=== PATIENT | female | born 1945 | race Caucasian/White ===

== ENCOUNTER 2016-10-22 10:09 | Outpatient (CLI) | payer MEDICARE, OTHER | END 2016-10-22 10:10 | disposition home or self-care (01) | DX: M47.817 Spondylosis without myelopathy or radiculopathy, lumbosacral region (principal) ==

== ENCOUNTER 2016-12-09 08:13 | Outpatient (CLI) | payer MEDICARE, OTHER | END 2016-12-09 08:14 | disposition home or self-care (01) | DX: Z12.31 Encounter for screening mammogram for malignant neoplasm of breast (principal) ==

== ENCOUNTER 2016-12-10 08:14 | Outpatient (CLI) | payer MEDICARE, OTHER | END 2016-12-10 08:15 | disposition home or self-care (01) | DX: M85.89 Other specified disorders of bone density and structure, multiple sites (principal) ==

== ENCOUNTER 2017-08-06 08:01 | Outpatient (CLI) | payer MEDICARE, OTHER ==
[2017-08-06 08:26] LABS: BASOPHILS # (AUTO) 0.1 10^3/uL (0.0-0.1); BASOPHILS % (AUTO) 0.8 %; EOSINOPHILS # (AUTO) 0.2 10^3/uL (0.0-0.7); HGB - HEMOGLOBIN 13.7 g/dL (12.0-16.0); LYMPHOCYTES # (AUTO) 3.4 10^3/uL (1.5-3.5); LYMPHOCYTES % (AUTO) 42.3 %; MEAN CORPUSCULAR HEMOGLOBIN 30.1 pg (27.0-31.0); MEAN CORPUSCULAR HGB CONC 33.7 g/dL (32.0-36.0); MEAN CORPUSCULAR VOLUME 89.5 fL (81.0-99.0); MEAN PLATELET VOLUME 8.2 fL (7.9-10.8); MONOCYTES # (AUTO) 0.7 10^3/uL (0.0-1.0); MONOCYTES % (AUTO) 8.6 %; NEUTROPHILS # (AUTO) 3.8 10^3/uL (1.5-6.6); NEUTROPHILS % (AUTO) 46.3 %; PLT - PLATELET COUNT 218 10^3/uL (130-450); RED BLOOD COUNT 4.54 10^6/uL (4.20-5.40); RED CELL DISTRIBUTION WIDTH 14.6 % (12.0-15.0); WHITE BLOOD COUNT 8.1 x10^3/uL (4.8-10.8)
[2017-08-06 08:50] LABS: ALBUMIN 4.3 g/dL (3.2-5.5); ALBUMIN/GLOBULIN RATIO 1.5 (1.0-2.2); ALKALINE PHOSPHATASE 82 IU/L (42-121); ALT ALANINE AMINOTRANSFERASE 24 IU/L (10-60); AST ASPARTATE AMINOTRANSFERASE 29 IU/L (10-42); BILIRUBIN,TOTAL 0.7 mg/dL (0.2-1.0); BUN - BLOOD UREA NITROGEN 16 mg/dL (6-20); CALCIUM 9.6 mg/dL (8.5-10.3); CARBON DIOXIDE - CO2 24 mmol/L (21-32); CHLORIDE 101 mmol/L (101-111); CHOL/HDL RATIO 2.9 (<4.4); CHOLESTEROL 184 mg/dL; CREATININE 0.5 mg/dL (0.4-1.0); GFR - MDRD 122 (>89); GLUCOSE 102 mg/dL (70-100); HDL CHOLESTEROL 63 mg/dL; LDL CHOLESTEROL,CALCULATED 81 mg/dL; LDL/HDL RATIO 1.3 (<4.4); SODIUM 137 mmol/L (135-145); TOTAL PROTEIN 7.1 g/dL (6.7-8.2); VLDL CHOLESTEROL 40 mg/dL
[2017-08-07 13:33] LABS: HEPATITIS C ANTIBODY NON-REACTIVE (NON-REACTIVE)
== END 2017-08-06 08:02 | disposition home or self-care (01) ==
LOC: LAB 08:01
PROVIDERS: ATTEND Physician Assistant Medical
DX: M81.0 Age-related osteoporosis without current pathological fracture (principal); Z79.899 Other long term (current) drug therapy; Z11.59 Encounter for screening for other viral diseases; E78.5 Hyperlipidemia, unspecified
CPT/HCPCS: 36415; 80053; 80061; 82306; 84443; 85025; 86803

== ENCOUNTER 2017-12-29 08:38 | Outpatient (CLI) | payer MEDICARE, OTHER ==
--- NOTE | 2017-12-30 13:58 | Mammography Report ---
DIGITAL SCREENING MAMMOGRAM: 12/29/2017 CLINICAL INDICATION: A 72-year-old for screening. COMPARISON: 12/2016, 12/2015, 07/2013, 03/2012, 03/2011, 11/2009. TECHNIQUE: Routine CC and MLO projections were obtained of the breasts. FINDINGS: The breasts again demonstrate scattered fibroglandular densities bilaterally. Coarse and punctate, typically benign calcifications are present. No suspicious masses, clustered microcalcifications, or regions of architectural distortion are identified. IMPRESSION: BENIGN FINDINGS. RECOMMENDATION: Routine annual screening unless otherwise clinically indicated. BI-RADS CATEGORY 2 - BENIGN FINDINGS. STANDARD QUALIFYING STATEMENTS: 1. This examination was reviewed with the aid of Computer-Aided Detection (CAD). 2. A negative or benign imaging report should not delay biopsy if clinically suspicious findings are present. Consider surgical consultation if warranted. More than 5% of cancers are not identified by imaging. 3. Dense breasts may obscure an underlying neoplasm. TD: 12/30/2017 13:49
== END 2017-12-29 08:39 | disposition home or self-care (01) ==
LOC: DI 08:38
PROVIDERS: ATTEND Physician Assistant Medical
DX: Z12.31 Encounter for screening mammogram for malignant neoplasm of breast (principal)
CPT/HCPCS: 77067

== ENCOUNTER 2018-08-04 08:04 | Outpatient (CLI) | payer MEDICARE, OTHER ==
[2018-08-04 08:33] LABS: BASOPHILS # (AUTO) 0.1 10^3/uL (0.0-0.1); BASOPHILS % (AUTO) 0.8 %; EOSINOPHILS # (AUTO) 0.2 10^3/uL (0.0-0.7); EOSINOPHILS % (AUTO) 2.9 %; HGB - HEMOGLOBIN 13.8 g/dL (12.0-16.0); LYMPHOCYTES # (AUTO) 2.6 10^3/uL (1.5-3.5); MEAN CORPUSCULAR HEMOGLOBIN 30.4 pg (27.0-31.0); MEAN CORPUSCULAR HGB CONC 33.9 g/dL (32.0-36.0); MEAN CORPUSCULAR VOLUME 89.7 fL (81.0-99.0); MEAN PLATELET VOLUME 8.3 fL (7.9-10.8); MONOCYTES # (AUTO) 0.6 10^3/uL (0.0-1.0); NEUTROPHILS # (AUTO) 3.2 10^3/uL (1.5-6.6); NEUTROPHILS % (AUTO) 48.3 %; PLT - PLATELET COUNT 245 10^3/uL (130-450); RED BLOOD COUNT 4.55 10^6/uL (4.20-5.40); RED CELL DISTRIBUTION WIDTH 14.5 % (12.0-15.0); WHITE BLOOD COUNT 6.6 x10^3/uL (4.8-10.8)
[2018-08-04 08:51] LABS: ALBUMIN 4.3 g/dL (3.2-5.5); ALBUMIN/GLOBULIN RATIO 1.5 (1.0-2.2); ALKALINE PHOSPHATASE 90 IU/L (42-121); ALT ALANINE AMINOTRANSFERASE 28 IU/L (10-60); AST ASPARTATE AMINOTRANSFERASE 32 IU/L (10-42); BILIRUBIN,TOTAL 0.7 mg/dL (0.2-1.0); BUN - BLOOD UREA NITROGEN 10 mg/dL (6-20); CALCIUM 9.3 mg/dL (8.5-10.3); CARBON DIOXIDE - CO2 26 mmol/L (21-32); CHLORIDE 105 mmol/L (101-111); CHOL/HDL RATIO 2.5 (<4.4); CHOLESTEROL 174 mg/dL; CREATININE 0.5 mg/dL (0.4-1.0); GFR - MDRD 122 (>89); GLUCOSE 108 mg/dL (70-100); HDL CHOLESTEROL 71 mg/dL; LDL CHOLESTEROL,CALCULATED 70 mg/dL; SODIUM 139 mmol/L (135-145); TOTAL PROTEIN 7.1 g/dL (6.7-8.2); VLDL CHOLESTEROL 33 mg/dL
== END 2018-08-04 08:05 | disposition home or self-care (01) ==
LOC: LAB 08:04
PROVIDERS: ATTEND Physician Assistant Medical
DX: Z79.899 Other long term (current) drug therapy (principal); M81.0 Age-related osteoporosis without current pathological fracture; E78.2 Mixed hyperlipidemia; E66.3 Overweight
CPT/HCPCS: 36415; 80053; 80061; 82306; 83721; 84443; 85025

== ENCOUNTER 2019-09-28 07:16 | Outpatient (CLI) | payer MEDICARE, OTHER ==
[2019-09-28 08:36] LABS: BASOPHILS % (AUTO) 0.5 %; EOSINOPHILS # (AUTO) 0.1 10^3/uL (0.0-0.7); EOSINOPHILS % (AUTO) 1.8 %; HGB - HEMOGLOBIN 14.6 g/dL (12.0-16.0); LYMPHOCYTES # (AUTO) 2.8 10^3/uL (1.5-3.5); LYMPHOCYTES % (AUTO) 36.2 %; MEAN CORPUSCULAR HEMOGLOBIN 30.7 pg (27.0-31.0); MEAN CORPUSCULAR HGB CONC 33.6 g/dL (32.0-36.0); MEAN CORPUSCULAR VOLUME 91.4 fL (81.0-99.0); MEAN PLATELET VOLUME 10.1 fL (7.9-10.8); MONOCYTES # (AUTO) 0.7 10^3/uL (0.0-1.0); MONOCYTES % (AUTO) 9.1 %; NEUTROPHILS # (AUTO) 4.1 10^3/uL (1.5-6.6); NEUTROPHILS % (AUTO) 51.9 %; PLT - PLATELET COUNT 310 10^3/uL (130-450); RED BLOOD COUNT 4.75 10^6/uL (4.20-5.40); RED CELL DISTRIBUTION WIDTH 13.5 % (12.0-15.0); WHITE BLOOD COUNT 7.8 x10^3/uL (4.8-10.8)
[2019-09-28 08:50] LABS: ALBUMIN 4.4 g/dL (3.2-5.5); ALBUMIN/GLOBULIN RATIO 1.4 (1.0-2.2); ALKALINE PHOSPHATASE 78 IU/L (42-121); ALT ALANINE AMINOTRANSFERASE 38 IU/L (10-60); AST ASPARTATE AMINOTRANSFERASE 40 IU/L (10-42); BILIRUBIN,TOTAL 0.6 mg/dL (0.2-1.0); BUN - BLOOD UREA NITROGEN 10 mg/dL (6-20); CALCIUM 9.4 mg/dL (8.5-10.3); CARBON DIOXIDE - CO2 25 mmol/L (21-32); CHLORIDE 104 mmol/L (101-111); CHOL/HDL RATIO 2.8 (<4.4); CHOLESTEROL 145 mg/dL; CREATININE 0.6 mg/dL (0.4-1.0); GFR - MDRD 99 (>89); GLUCOSE 99 mg/dL (70-100); HDL CHOLESTEROL 52 mg/dL; LDL CHOLESTEROL,CALCULATED 70 mg/dL; LDL/HDL RATIO 1.3 (<4.4); SODIUM 137 mmol/L (135-145); TOTAL PROTEIN 7.6 g/dL (6.7-8.2); VLDL CHOLESTEROL 23 mg/dL
[2019-09-28 10:42] LABS: FREE T4 (FREE THYROXINE) 1.13 ng/dL (0.58-1.64)
== END 2019-09-28 07:17 | disposition home or self-care (01) ==
LOC: LAB 07:16
PROVIDERS: ATTEND Nurse Practitioner
DX: R73.9 Hyperglycemia, unspecified (principal); Z79.899 Other long term (current) drug therapy; E78.2 Mixed hyperlipidemia; M81.0 Age-related osteoporosis without current pathological fracture
CPT/HCPCS: 36415; 80053; 80061; 82306; 83721; 84439; 84443; 85025

== ENCOUNTER 2019-11-13 08:45 | Outpatient (CLI) | payer MEDICARE, OTHER ==
--- NOTE | 2019-11-13 11:14 | Mammography Report ---
Reason: ABNORMAL MAMMOGRAM Procedure Date: 11/13/2019 Accession Number: [id number] / [id number] Procedure: ZAINAB - Diag Special Views Dig LT CPT Code: Final Report FULL RESULT: EXAM: Diag Special Views Dig LT DATE: 11/13/2019 9:23 AM CLINICAL HISTORY: Diagnostic examination. The patient is recalled from screening for hyperdense nodule. TECHNIQUE: (B) - Bilateral CC and MLO views were obtained. Focused left breast ultrasound is performed. COMPARISON: 10/09/2019 through 03/12/2011. PARENCHYMAL PATTERN: (D) - The breast(s) demonstrate(s) heterogeneously dense fibroglandular parenchyma. FINDINGS: Evidence nodule persists on spot views and is tomographically partially obscured. Focused left breast ultrasound demonstrates a hypoechoic lobulated partially ill-defined 2.0 x 0.9 x 1.5 cm vascular mass which corresponds to the mammographic finding at the 2:00 position 4 cm from the nipple, suspicious. There are no suspicious calcifications, or areas of distortion. IMPRESSION: Suspicious findings. BI-RADS category 4. RECOMMENDATION: (BIOPSY) - left breast biopsy under ultrasound guidance. BI-RADS CATEGORY: (4) - Suspicious. STANDARD QUALIFYING STATEMENTS: 1. This examination was not reviewed with the aid of Computer-Aided Detection (CAD). 2. A negative or benign imaging report should not preclude biopsy if clinically suspicious findings are present. 3. Dense breasts may obscure an underlying neoplasm. 4. This examination was reviewed with the aid of 3D breast imaging (tomosynthesis).
== END 2019-11-13 08:46 | disposition home or self-care (01) ==
LOC: DI 08:45
PROVIDERS: ATTEND Nurse Practitioner Obstetrics & Gynecology
DX: N63.22 Unspecified lump in the left breast, upper inner quadrant (principal)
CPT/HCPCS: 76642

== ENCOUNTER 2019-12-06 13:02 | Outpatient (CLI) | payer MEDICARE, OTHER ==
[~2019-12-06 13:02] MED LIST: BUFFERED LIDOCAINE 10 ML SYRINGE ONE
[2019-12-06] MEDS ORDERED: BUFFERED LIDOCAINE 10 ML SYRINGE IU ONE (14:51)
--- NOTE | 2019-12-12 14:10 | Ultrasound Report ---
Reason: ABNORMAL MAMMO - LT BREAST NODULE Procedure Date: 12/06/2019 Accession Number: [id number] / [id number] Procedure: US - Biopsy Breast Core CPT Code: Final Report FULL RESULT: PROCEDURE: Ultrasound-guided needle biopsy left breast mass. CLINICAL DATA: Targeted mass measuring 2 cm with irregular margins in the 2 o'clock axis of the left breast. Informed consent was obtained. Using standard aseptic technique, 1% buffered lidocaine was injected into the left breast for local anesthesia. A small elmer was made in the skin with a #11 blade. A 12-gauge Wordlock vacuum-assisted device was used to obtain 3 specimens. A specialized biopsy marker clip was placed into the biopsy cavity under ultrasound guidance. The patient was taken to separate mammography machine and a two-view digital mammography was performed to verify the clip placement and any complications. The mammography showed concordant clip positioning. The wound was dressed and ice applied. The patient was observed for approximately 15 minutes, then was discharged from diagnostic imaging Department in good condition following instructions on wound care and obtaining biopsy results. The patient is scheduled to receive the biopsy results from the referring physician. The tissue was sent for histologic analysis. IMPRESSION: Ultrasound-guided biopsy of the left breast. Biopsy performed and pathology reviewed by Dr. Farris. Final pathology results are malignant invasive adenocarcinoma, ductal type with mucinous component, histologically low-grade. These results are concordant with imaging findings. Recommendation: Surgical follow-up with treatment planning. The patient has been scheduled to obtain results on 12/12/[address] Martínez
== END 2019-12-06 13:03 | disposition home or self-care (01) ==
LOC: DI 13:02
PROVIDERS: ATTEND Nurse Practitioner Obstetrics & Gynecology
DX: C50.412 Malignant neoplasm of upper-outer quadrant of left female breast (principal); Z17.0 Estrogen receptor positive status [ER+]
CPT/HCPCS: 19083

== ENCOUNTER 2020-01-11 11:39 | Outpatient (CLI) | payer MEDICARE, OTHER | END 2020-01-11 11:40 | disposition home or self-care (01) | LOC: LAB 11:39 | PROVIDERS: ATTEND Surgery | DX: Z01.818 Encounter for other preprocedural examination (principal); C50.912 Malignant neoplasm of unspecified site of left female breast; Z20.828 Contact with and (suspected) exposure to other viral communicable diseases | CPT/HCPCS: 81599 ==

== ENCOUNTER 2020-01-15 09:01 | Day surgery (SDC) | payer MEDICARE, OTHER ==
[2020-01-15] MEDS ORDERED: CEFAZOLIN SODIUM IN 0.9 % NACL 2 GM/100 ML BAG IV ONE (09:02)
[2020-01-15] MEDS ORDERED: ONDANSETRON 4 MG/2 ML VIAL IVP ONE (09:02)
[2020-01-15] MEDS ORDERED: DEXAMETHASONE 4 MG/ML VIAL IVP ONE (09:02)
[2020-01-15] MEDS ORDERED: fentaNYL 100 MCG/2 ML VIAL IVP ONE (09:02)
[2020-01-15] MEDS ORDERED: PROPOFOL 200 MG/20 ML VIAL IVP ONE (09:02)
[2020-01-15] MEDS ORDERED: ACETAMINOPHEN 1,000 MG/100 ML VIAL IV ONE (09:02)
[2020-01-15] MEDS ORDERED: MIDAZOLAM 2 MG/2 ML VIAL IVP ONE (09:02)
[2020-01-15] MEDS ORDERED: BUFFERED LIDOCAINE 10 ML SYRINGE ONE ×2 (09:12→10:30)
[2020-01-15] MEDS ORDERED: LACTATED RINGERS 1,000 ML IV ONE (09:13)
[2020-01-15] MEDS ORDERED: BUPIVACAINE 0.5% PF 30 ML VIAL ONE (10:37)
[2020-01-15] MEDS ORDERED: LIDOCAINE 1%-EPI 1:100000 20 ML MDV ONE (10:37)
[2020-01-15] MEDS ORDERED: METHYLENE BLUE 0.5% 50 MG/10 ML AMPULE IVP ONE ×2 (12:08)
[2020-01-15] MEDS ORDERED: METHYLENE BLUE 0.5% 50 MG/10 ML AMPULE ONE (12:11)
[2020-01-15] MEDS ORDERED: BUPIVACAINE 0.5%-EPI 1:200000 PF 30 ML VIAL SUBQ ONE ×3 (12:11→12:48)
[2020-01-15] MEDS ORDERED: LIDOCAINE 1%-EPI 1:100000 30 ML MDV SUBQ ONE ×3 (12:11→12:48)
--- NOTE | 2020-01-15 12:23 | ANESTHESIA ---
Pre-Anesthesia VS, & Labs - Diagnosis invasive L breast cancer - Procedure L breast lumpectomy Vital Signs: Temp Pulse Resp BP Pulse Ox 36.2 C L 84 12 152/70 H 99 01/15/20 09:14 01/15/20 09:14 01/15/20 09:14 01/15/20 09:14 01/15/20 09:14 Height 5 ft 2 in Weight (kg) 69.2 kg - NPO >8 hours - Is Patient ?: No - Lab Results Lab results reviewed: Yes Home Medications and Allergies Home Medications: Ambulatory Orders Atorvastatin Calcium 20 mg PO QPM 01/09/20 Biotin 5,000 mcg PO DAILY 01/09/20 Calcium Carb/Mag Ox/Zinc Sulf [Cvs Sbjbnby-Pnzoqqucb-Mol Cplt] 1 each PO DAILY 01/09/20 Cholecalciferol [Vitamin D3] 2,000 unit PO DAILY 01/09/20 Cyanocobalamin (Vitamin B-12) [Vitamin B-12] 2,500 mcg SL DAILY 01/09/20 Multivitamin 1 each PO DAILY 01/09/20 Atorvastatin Calcium 20 mg PO QPM 01/09/20 Biotin 5,000 mcg PO DAILY 01/09/20 Calcium Carb/Mag Ox/Zinc Sulf [Cvs Jisbzhl-Hwqjxyslb-Lqd Cplt] 1 each PO DAILY 01/09/20 Cholecalciferol [Vitamin D3] 2,000 unit PO DAILY 01/09/20 Cyanocobalamin (Vitamin B-12) [Vitamin B-12] 2,500 mcg SL DAILY 01/09/20 Multivitamin 1 each PO DAILY 01/09/20 Allergies/Adverse Reactions: Allergies Allergy/AdvReac Type Severity Reaction Status Date / Time amoxicillin [From Augmentin] AdvReac Unknown Verified 01/15/20 09:25 clavulanic acid AdvReac Unknown Verified 01/15/20 09:25 [From Augmentin] Anes History & Medical History - Anesthetic History Anesthesia Complications: reports: No previous complications, Difficult airway (per pt, from case 30 years ago), Other-see comment Family history of Anesthesia Complications: Denies Family history of Malignant Hyperthermia: Denies - Medical History Cardiovascular: reports: High cholesterol Pulmonary: reports: None Gastrointestinal: reports: None Urinary: reports: None Musculoskeletal: reports: None Endocrine/Autoimmune: reports: None Skin: reports: None Smoking Status: Never smoker - Surgical History Eyes Ears Nose Throat (EENT): Tonsil/Adenoidectomy Gynecologic: Dilation and currettage Orthopedic: Other Exam General: Alert, Oriented x3, Cooperative Dental: WNL Mouth Openin Fingerbreadth Neck Mobility: Normal Mallampati classification: II Thyromental Distance: 4-6 cm Respiratory: Lungs clear, Normal breath sounds, No respiratory distress Cardiovascular: Regular rate Neurological: Normal speech Mental/Cognitive Status: Alert/Oriented X3, Normal for patient Cognitive Status: Within normal limits Plan Anesthesia Type: General Consent for Procedure(s) Verified and Reviewed: Yes Code Status: Attempt Resuscitation ASA classification: 3-Severe systemic disease Is this case an emergency?: No
[2020-01-15] MEDS ORDERED: ONDANSETRON 4 MG/2 ML VIAL IVP PRN (13:25)
[2020-01-15] MEDS ORDERED: ACETAMINOPHEN 325 MG TABLET PO PRN (13:25)
[2020-01-15] MEDS ORDERED: IBUPROFEN 600 MG TABLET PO PRN (13:25)
[2020-01-15] MEDS ORDERED: oxyCODONE 5 MG TABLET PO PRN (13:25)
--- NOTE | 2020-01-15 13:35 | OPERATIVE REPORT ---
Operative Report - General Procedure Date: 01/15/20 Planned Procedure: Left breast lumpectomy and sentinel node biopsy after needle localization and mapping. Pre-Op Diagnosis: Biopsy-proven left breast cancer Procedure Performed: Left breast lumpectomy and sentinel node biopsy Post Op Diagnosis: Same - Procedure Note Primary Surgeon: Nelson Anesthesia Provider: JONATHAN Pang Anesthesia Technique: Local, MAC Pathology: 1. a single sentinel node to path in formalin - pale blue in color 2. left breast mass to pathology in formalin Estimated Blood Loss (mL): 10 Findings: No sentinel node identified with Neoprobe One pale blue sentinel node identified after methylene blue injection Complications: None apparent - Other Other Information/Narrative: After obtaining informed consent, the patient is brought to the operating room and placed in the supine position on the operating table. Following successful induction of sedation, the left breast and axilla were prepped and draped in the standard surgical fashion. A timeout was held per scope protocol. All elements of the surgical safety checklist were followed before, during, and after the procedure. The patient was seen previously in our radiology department where she underwent a needle localization as well as injection of 1 mCi of technetium sulfur colloid followed by sentinel node mapping. TheTo the axilla at all. Images were reviewed and did not show any significant evidence of sentinel node. radioactive tracer did not appear to migrate we elected to attempt a second mapping using methylene blue in the operating room.We began the procedure by double checking using the neoprobe. The entire chest wall cervical supraclavicular axillary and internal mammary regions were scanned with the neoprobe without significant counts. This is with the exception of a very high count at the nipple areolar complex where the patient was injected.I injected 3 mL of methylene blue in the subcutaneous region of the nipple areolar complex and the massaged the area for 5 minutes. We began the procedure by infiltrating a mixture of local anesthetics in a natural axillary fold in the left axilla. An incision was created here and carried down through the skin and subcutaneous tissue.The axillary fat pad was opened. We again used the neoprobe to try to identify an area of greater uptake but we were not successful. Began a visual inspection of the area. At level 1, there was a firm palpable pale blue node identified. All afferent and efferent vasculature and lymphatics were addressed with hemoclips. The node was liberated from surrounding structures and passed from the table as sentinel node 1.Additional survey of the axilla did not reveal any additional blue lymphatics or lymph nodes. We continued with the lumpectomy. Due to the proximity of the breast mass to the axilla, I was able to utilize the same incision to perform the lumpectomy. The end of the wire was pulled through the skin and into the axillary incision. It led down to the mass in the left breast this mass was gently grasped with an Allis forcep and removed sharply from the surrounding tissue. It was taken directly off of the pectoralis muscle posteriorly without taking muscle. Anteriorly there is approximately 1/2 cm of subcutaneous tissue over the lesion. The entire specimen was liberated in a 360 degree fashion and delivered onto the field. It was marked for orientation and submitted for specimen x-ray. The wound was checked for hemostasis and irrigated with warm water. It was aspirated free of all fluid and packed once again. We waited for radiology to read the specimen. They called back into the room stating the target lesion and clip were contained and within the specimen.The wound was checked once again for hemostasis and then closed in 2 layers with Vicryl and Monocryl suture. Dermabond was applied to the skin. All sponge, needle, and instrument counts were correct at the conclusion of the case. The patient was allowed to wake from anesthesia without difficulty and taken to the postanesthesia care unit in good condition.
[2020-01-15 14:32] VITALS: BP 130/65
[2020-01-15] MEDS ORDERED: BUFFERED LIDOCAINE 10 ML SYRINGE IU ONE (16:13)
--- NOTE | 2020-01-16 16:29 | Nuclear Medicine Report ---
Reason: LT BREAST CA Procedure Date: 01/15/2020 Accession Number: [id number] / [id number] Procedure: NM - Lymph Node Scintigraphy CPT Code: Final Report FULL RESULT: PROCEDURE: SENTINEL LYMPH NODE IMAGING RADIOPHARMACEUTICAL: 0.5-1.0 mCi Millipore filtered Tc-99m sulfur colloid. INDICATIONS: LT BREAST CA TECHNIQUE: The area around the nipple was prepped and draped in a sterile fashion. Tc-99m sulfur colloid was injected intra-dermally in the outer edge of the areola in the left breast. Images were obtained subsequently. A body contour outline was obtained. FINDINGS: There is/are no lymph node(s) in the ipsilateral axilla. IMPRESSION: No lymph node(s) are identified in the ipsilateral axilla. Reviewed by: Rosio Chappell MD on 01/16/2020 4:28 PM PDT Approved by: Rosio Chappell MD on 01/16/2020 4:28 PM PDT Station ID: [id number]
--- NOTE | 2020-01-18 09:25 | Mammography Report ---
MAMMOGRAPHY GUIDED WIRE LOCALIZATION LEFT BREAST WITH POST MAMMOGRAPHIC IMAGIN01/15/2020 CLINICAL: Left breast wire localization. Correlation is made to exams dated: 12/13/2019 mammogram, 12/13/2019 ultrasound - outside location, 12/19 breast MRI - [facility], and 10/09/2019 mammogram - [facility]. A wire localization using mammography guidance was performed for the indistinct irregular shaped mass located in the left breast at 2 o'clock posterior depth. This was described on the previous mammogr aphy report. The skin was prepped in the usual manner. Local anesthetic was administered to the [facility] ess site. A skin elmer was made in the breast. The localization was approached from the craniocaudal aspect. A J-hook wire was inserted adjacent to the marker under mammography guidance. The patient received additional topical anesthetic during the procedure. A sterile dressing was applied to the a ccess site. Post placement mammographic imaging was obtained. IMPRESSION: WIRE LOCALIZATION Wire localization for the mass in the left breast at 2 o'clock posterior depth was successful. This exam was interpreted at Station ID: [id number]. Rosio Chappell M.D. [facility]/:01/17/2020 16:37:22 BI-RADS CATEGORY: () - Unspecified - other recall n/a LATERALITY: (B)
--- NOTE | 2020-01-18 09:25 | Mammography Report ---
SPECIMEN LEFT BREAST: 01/15/2020 CLINICAL: Post left lumpectomy. Correlation is made to exams dated: 01/15/2020 localization - [facility], 12/13/2019 m ammogram - outside location, and 10/09/2019 mammogram - [facility]. A surgical specimen was imaged for the indistinct irregular shaped mass located in the left breast a t 2 o'clock posterior depth. This was described on the previous mammography report. IMPRESSION: SPECIMEN The imaged specimen includes the lesion, a biopsy clip, and the distal portion of the localization wi re. This exam was interpreted at Station ID: [id number]. Rosio Chappell M.D. janelle/roseanna:01/17/2020 16:38:51 BI-RADS CATEGORY: () - Unspecified - other recall n/a LATERALITY: (B)
== END 2020-01-15 09:02 | disposition home or self-care (01) ==
LOC: DI 09:01
PROVIDERS: ATTEND Surgery
PROC: 07B60ZX Excision of Left Axillary Lymphatic, Open Approach, Diagnostic (ICD-10-PCS; 2020-01-15)
PROC: 0HBU0ZZ Excision of Left Breast, Open Approach (ICD-10-PCS; principal; 2020-01-15 10:30)
DX: C50.412 Malignant neoplasm of upper-outer quadrant of left female breast (principal); Z17.0 Estrogen receptor positive status [ER+]
CPT/HCPCS: 19281; 19301; 38525; 38900; 76098; 78195; A9541; J0131; J0690; J7120

== ENCOUNTER 2020-02-23 08:17 | Outpatient (CLI) | payer MEDICARE, OTHER ==
--- NOTE | 2020-02-23 16:56 | DEXA Report ---
Reason: POST MENOPAUSAL Procedure Date: 02/23/2020 Accession Number: [id number] / [id number] Procedure: DEX - Dexa Spine and/or Hip CPT Code: Final Report FULL RESULT: PROCEDURE: Dexa Spine and/or Hip INDICATIONS: POST MENOPAUSAL TECHNIQUE: Dual energy x-ray absorptiometry (DXA) was performed on a [email or web address] System. Regions measured are the AP Spine, femoral neck, and if needed forearm. COMPARISON: None. FINDINGS: Lumbar Spine: Bone Mineral Density 1.015 g/cm/cm,T score -1.4, osteopenia Left Hip: Bone Mineral Density 0.888 g/cm/cm,T score -0.9, normal Left Femoral Neck: Bone Mineral Density 0.787 g/cm/cm, T score -1.8, osteopenia (T score greater or equal to -1.0: NORMAL) (T score from -1.1 to -2.4: OSTEOPENIA) (T score less than or equal to -2.5 to: OSTEOPOROSIS) Impression: Osteopenia. Patients with diagnosis of osteoporosis or osteopenia should have regular bone mineral density assessment. For those eligible for Medicare, routine testing is allowed once every 2 years. Testing frequency can be increased for patients who have rapidly progressing disease or for those who are receiving medical therapy to restore bone mass. Reviewed by: Dasha Mckinney MD, PhD on 02/23/2020 4:54 PM PDT Approved by: Dasha Mckinney MD, PhD on 02/23/2020 4:54 PM PDT Station ID: [id number]
== END 2020-02-23 08:18 | disposition home or self-care (01) ==
LOC: DI 08:17
PROVIDERS: ATTEND Internal Medicine
DX: M85.89 Other specified disorders of bone density and structure, multiple sites (principal); Z78.0 Asymptomatic menopausal state
CPT/HCPCS: 77080

== ENCOUNTER 2020-07-23 11:17 | Outpatient (CLI) | payer MEDICARE, OTHER ==
--- NOTE | 2020-07-24 10:33 | Mammography Report ---
BILATERAL DIGITAL DIAGNOSTIC MAMMOGRAM 3D/2D: 07/23/2020 CLINICAL: Post left lumpectomy. Comparison is made to exams dated: 12/13/2019 mammogram - outside location, 10/09/2019 mammogram, 018 mammogram, 12/09/2016 mammogram, 12/25/2015 mammogram, and 07/13/2013 mammogram - [facility]. There are scattered fibroglandular elements in both breasts. The left breast has expected post-operative findings from interval partial mastectomy. No significant masses, calcifications, or other findings are seen in either breast. IMPRESSION: NEGATIVE There is no mammographic evidence of malignancy. A 1 year screening mammogram is recommended. This exam was interpreted at Station ID: [id number]. NOTE: For mammograms, a report in lay terms will be sent to the patient. Approximately 15% of breast malignancies will not be visualized mammographically. In the management of a palpable breast mass, a negative mammogram must not discourage biopsy of a clinically suspicious lesion. Electronically Signed By: Zachery Wallis M.D. aty/:07/23/2020 13:00:14 ACR BI-RADS Category 1: Negative 3341F PARENCHYMAL PATTERN: (A) - The breast(s) demonstrate(s) scattered fibroglandular densities. BI-RADS CATEGORY: (1) - 1 RECOMMENDATION: (ANNUAL) - Recommend routine annual screening mammography. [id number] 1 year screening LATERALITY: (B)
== END 2020-07-23 11:18 | disposition home or self-care (01) ==
LOC: DI 11:17
PROVIDERS: ATTEND Internal Medicine
DX: C50.412 Malignant neoplasm of upper-outer quadrant of left female breast (principal)

== ENCOUNTER 2020-08-29 13:46 | Outpatient (CLI) | payer MEDICARE, OTHER ==
--- NOTE | 2020-08-29 15:19 | Ultrasound Report ---
PROCEDURE: Duplex Ext Veins Left INDICATIONS: LEFT KNEE SWELLING TECHNIQUE: Real-time imaging, as well as color and pulse Doppler interrogation, were performed of the lower extr emity deep veins from the inguinal ligament to the popliteal fossa. COMPARISON: None. FINDINGS: The deep veins are normally compressible, and free of intraluminal thrombus. Color and pu lse Doppler demonstrate normal phasic intraluminal flow. There is normal augmentation response to di stal compression maneuver. There is a left popliteal fossa Palomino's cyst measuring 3.4 x 2.7 x 1.8 cm . No sonographic abnormalities identified in the area of patient's concern involving the left inferom edial knee and left medial ankle. IMPRESSION: 1. Negative for deep venous thrombosis of the left lower extremity. 2. Incidental note of Palomino's cyst in the left popliteal fossa. 3. Otherwise, no sonographic abnormalities noted at the areas of patient concern. Reviewed by: Zachery Wallis MD on 08/29/2020 3:18 PM PST Approved by: Zachery Wallis MD on 08/29/2020 3:18 PM PST Station ID: [id number]
== END 2020-08-29 13:47 | disposition home or self-care (01) ==
LOC: DI 13:46
PROVIDERS: ATTEND Internal Medicine
DX: M25.462 Effusion, left knee (principal); M71.22 Synovial cyst of popliteal space [Baker], left knee; C50.912 Malignant neoplasm of unspecified site of left female breast

== ENCOUNTER 2020-09-10 08:58 | Outpatient (CLI) | payer MEDICARE, OTHER ==
[2020-09-10 09:32] LABS: BASOPHILS # (AUTO) 0.1 10^3/uL (0.0-0.1); BASOPHILS % (AUTO) 0.8 %; EOSINOPHILS # (AUTO) 0.2 10^3/uL (0.0-0.7); EOSINOPHILS % (AUTO) 3.1 %; HGB - HEMOGLOBIN 13.8 g/dL (12.0-16.0); LYMPHOCYTES # (AUTO) 2.6 10^3/uL (1.5-3.5); LYMPHOCYTES % (AUTO) 36.9 %; MEAN CORPUSCULAR HEMOGLOBIN 29.9 pg (27.0-31.0); MEAN CORPUSCULAR HGB CONC 32.1 g/dL (32.0-36.0); MEAN CORPUSCULAR VOLUME 93.1 fL (81.0-99.0); MEAN PLATELET VOLUME 9.9 fL (7.9-10.8); MONOCYTES # (AUTO) 0.7 10^3/uL (0.0-1.0); MONOCYTES % (AUTO) 10.3 %; NEUTROPHILS # (AUTO) 3.5 10^3/uL (1.5-6.6); NEUTROPHILS % (AUTO) 48.6 %; PLT - PLATELET COUNT 242 10^3/uL (130-450); RED BLOOD COUNT 4.62 10^6/uL (4.20-5.40); RED CELL DISTRIBUTION WIDTH 14.1 % (12.0-15.0); WHITE BLOOD COUNT 7.2 x10^3/uL (4.8-10.8)
[2020-09-10 09:54] LABS: ALBUMIN 4.3 g/dL (3.2-5.5); ALBUMIN/GLOBULIN RATIO 1.4 (1.0-2.2); ALKALINE PHOSPHATASE 84 IU/L (42-121); ALT ALANINE AMINOTRANSFERASE 29 IU/L (10-60); AST ASPARTATE AMINOTRANSFERASE 33 IU/L (10-42); BILIRUBIN,TOTAL 0.4 mg/dL (0.2-1.0); BUN - BLOOD UREA NITROGEN 14 mg/dL (6-20); CALCIUM 9.6 mg/dL (8.5-10.3); CARBON DIOXIDE - CO2 27 mmol/L (21-32); CHLORIDE 101 mmol/L (101-111); CHOLESTEROL 194 mg/dL; CREATININE 0.6 mg/dL (0.4-1.0); GLUCOSE 100 mg/dL (70-100); HDL CHOLESTEROL 64 mg/dL; LDL CHOLESTEROL,CALCULATED 86 mg/dL; LDL/HDL RATIO 1.3 (<4.4); TOTAL PROTEIN 7.4 g/dL (6.7-8.2); VLDL CHOLESTEROL 44 mg/dL
--- NOTE | 2020-09-10 16:36 | XRAY Report ---
PROCEDURE: Knee 3 View LT INDICATIONS: KNEE PAIN LEFT TECHNIQUE: 3 views of the left knee(s) were acquired. COMPARISON: None. FINDINGS: Bones: No fractures or dislocations. No suspicious bony lesions. Soft tissues: No joint effusion. No suspicious soft tissue calcifications. IMPRESSION: No fracture. No osseous lesion. If there are persistent symptoms or continued clinical concern for pa thology, then repeat plain film radiographs (7-10 days) or advanced imaging (CT, MR, bone scan) shoul d be considered for further evaluation. Reviewed by: Dasha Mckinney MD, PhD on 09/10/2020 4:35 PM PST Approved by: Dasha Mckinney MD, PhD on 09/10/2020 4:35 PM PST Station ID: [id number]
== END 2020-09-10 08:59 | disposition home or self-care (01) ==
LOC: LAB 08:58 → DI 08:59
PROVIDERS: ATTEND Family Medicine
DX: M25.562 Pain in left knee (principal); E78.2 Mixed hyperlipidemia; C50.919 Malignant neoplasm of unspecified site of unspecified female breast; R89.9 Unspecified abnormal finding in specimens from other organs, systems and tissues
CPT/HCPCS: 36415; 80053; 80061; 83721; 84443; 85025

== ENCOUNTER 2021-01-28 09:32 | Outpatient (CLI) | payer MEDICARE, OTHER ==
--- NOTE | 2021-01-29 13:24 | Mammography Report ---
UNILATERAL LEFT DIGITAL DIAGNOSTIC MAMMOGRAM 3D/2D: 01/28/2021 CLINICAL: Patient returns for a 6 month follow up of the left breast. Comparison is made to exams dated: 07/23/2020 mammogram, 01/15/2020 localization - [facility], 12/13/2019 mammogram - outside location, 10/09/2019 mammogram, and 12/29/2017 mammogram - [facility]. There are scattered fibroglandular elements in left breast. There are benign post operative findings in the left breast. No significant masses, calcifications, or other findings are seen in the breast. There has been no significant interval change. IMPRESSION: BENIGN There is no mammographic evidence of malignancy. A 1 year screening mammogram is recommended. Future imaging is recommended as follows: 07/24/2021 screening mammogram. This exam was interpreted at Station ID: [id number]. NOTE: For mammograms, a report in lay terms will be sent to the patient. Approximately 15% of breast malignancies will not be visualized mammographically. In the management of a palpable breast mass, a negative mammogram must not discourage biopsy of a clinically suspicious lesion. Electronically Signed By: Aleks flores/roseanna:01/28/2021 10:27:41 ACR BI-RADS Category 2: Benign Finding(s) 3342F PARENCHYMAL PATTERN: (A) - The breast(s) demonstrate(s) scattered fibroglandular densities. BI-RADS CATEGORY: (2) - 2 RECOMMENDATION: (ANNUAL) - Recommend routine annual screening mammography. [id number] 1 year screening LATERALITY: (B)
== END 2021-01-28 09:33 | disposition home or self-care (01) ==
LOC: DI 09:32
PROVIDERS: ATTEND Internal Medicine
DX: C50.412 Malignant neoplasm of upper-outer quadrant of left female breast (principal)

== ENCOUNTER 2021-06-04 09:02 | Outpatient (CLI) | payer MEDICARE, OTHER ==
--- NOTE | 2021-06-04 09:38 | XRAY Report ---
PROCEDURE: Knee 3 View RT INDICATIONS: KNEE EFFUSION,RIGHT TECHNIQUE: 3 views of the right knee(s) were acquired. COMPARISON: None. FINDINGS: BONES/JOINT: No acute, displaced fracture or dislocation. Small suprapatellar joint effusion. Promine nt superior patellar enthesophyte. SOFT TISSUES: No significant abnormality. IMPRESSION: 1.No acute osseous abnormality. Reviewed by: Damion Villafuerte MD on 06/04/2021 9:36 AM PDT Approved by: Damion Villafuerte MD on 06/04/2021 9:36 AM PDT Station ID: [id number]
== END 2021-06-04 09:03 | disposition home or self-care (01) ==
LOC: DI 09:02
PROVIDERS: ATTEND Family Medicine
DX: M25.461 Effusion, right knee (principal)

== ENCOUNTER 2021-07-09 10:46 | Outpatient (CLI) | payer MEDICARE, OTHER ==
--- NOTE | 2021-07-10 13:28 | Mammography Report ---
BILATERAL DIGITAL DIAGNOSTIC MAMMOGRAM 3D/2D: 07/09/2021 CLINICAL: Routine screening. Personal history of left breast cancer. Comparison is made to exams dated: 01/28/2021 mammogram, 07/23/2020 mammogram, 01/15/2020 localization - [facility], 12/20/2019 breast MRI - [facility], and 12/13/2019 mammogram - [facility] location. There are scattered fibroglandular elements in both breasts. There are benign post operative findings in the left breast. No significant masses, calcifications, or other findings are seen in either breast. There has been no significant interval change. IMPRESSION: BENIGN There is no mammographic evidence of malignancy. A 1 year screening mammogram is recommended. This exam was interpreted at Station ID: [id number]. NOTE: For mammograms, a report in lay terms will be sent to the patient. Approximately 15% of breast malignancies will not be visualized mammographically. In the management of a palpable breast mass, a negative mammogram must not discourage biopsy of a clinically suspicious lesion. Electronically Signed By: Aleks flores/roseanna:07/09/2021 11:30:32 ACR BI-RADS Category 2: Benign Finding(s) 3342F PARENCHYMAL PATTERN: (A) - The breast(s) demonstrate(s) scattered fibroglandular densities. BI-RADS CATEGORY: (2) - 2 RECOMMENDATION: (ANNUAL) - Recommend routine annual screening mammography. [id number] 1 year screening LATERALITY: (B)
== END 2021-07-09 10:47 | disposition home or self-care (01) ==
LOC: DI 10:46
PROVIDERS: ATTEND Internal Medicine
DX: C50.912 Malignant neoplasm of unspecified site of left female breast (principal); R92.8 Other abnormal and inconclusive findings on diagnostic imaging of breast

== ENCOUNTER 2021-08-09 02:16 | Emergency (ER) | payer MEDICARE, OTHER ==
--- NOTE | 2021-08-09 03:31 | ED Physician Documentation ---
PD HPI HEADACHE - Stated complaint Stated Complaint: HEADACHE - Chief complaint Chief Complaint: Heent - History obtained from History obtained from: Patient - History of Present Illness Timing - onset: How many days ago (3-4) Timing - details: Gradual onset, Constant Pain level now: 8 Worst headache ever?: No: Worst headache ever? Location: Front, Left Quality: Throbbing, Aching Associated symptoms: Fever. No: Stiff neck, Nausea, Vomiting, Weakness, Numbness, Eye pain, Vision changes Improved by: Nothing Worsened by: Other (no exacerbating factors) Contributing factors: No: Anticoagulated Recently seen: Emergency Dept - Additional information Additional information: T+R from this ED yesterday, diagnosed with UTI and URI. She was prescribed antibiotic for UTI, as well as meloxicam for pain. She returns due to right frontal headache which is not improving with meloxicam. She recalls only one other time she had similar severe headache; approximately 5 years ago, which was attributed to influenza. She is COVID vaccinated including booster. Review of Systems Constitutional: reports: Fever (has had fevers at home to Tmax 102.3 but not since yesterday), Myalgias Eyes: reports: Reviewed and negative Ears: reports: Reviewed and negative Nose: reports: Reviewed and negative Throat: reports: Reviewed and negative Cardiac: reports: Reviewed and negative Respiratory: reports: Reviewed and negative GI: reports: Reviewed and negative : reports: Dysuria, Other (1-2 days of sensation of incomplete voiding, urinary frequency). denies: Frequency Skin: reports: Reviewed and negative Musculoskeletal: reports: Reviewed and negative Neurologic: reports: Headache. denies: Focal weakness, Numbness PD PAST MEDICAL HISTORY - Past Medical History Past Medical History: Yes Cardiovascular: High cholesterol Respiratory: None Neuro: None Endocrine/Autoimmune: None GI: None TAX EXAMINING TECHNICIAN: None : None HEENT: Chronic vision loss Psych: None Musculoskeletal: None Derm: None - Past Surgical History Past Surgical History: Yes Ortho: Other /TAX EXAMINING TECHNICIAN: Dilation and currettage HEENT: Tonsil/Adenoidectomy - Present Medications Home Medications: Ambulatory Orders Medication Instructions Recorded Confirmed Atorvastatin Calcium 20 mg PO QPM 01/09/20 07/16/21 Biotin 5,000 mcg PO DAILY 01/09/20 07/16/21 Calcium Carb/Mag Ox/Zinc Sulf [Cvs 1 each PO DAILY 01/09/20 07/16/21 [id number] Cplt] Cholecalciferol [Vitamin D3] 2,000 unit PO DAILY 01/09/20 07/16/21 Cyanocobalamin (Vitamin B-12) 2,500 mcg SL DAILY 01/09/20 07/16/21 [Vitamin B-12] Multivitamin 1 each PO DAILY 01/09/20 07/16/21 Gabapentin 300 mg PO QPM #10 capsule 01/15/20 07/16/21 Ondansetron Odt [Zofran Odt] 4 mg TL Q6H PRN #10 tablet 01/15/20 07/16/21 oxyCODONE [Roxicodone] 5 mg PO Q4HR PRN #20 tablet 01/15/20 07/16/21 Letrozole 2.5 mg PO DAILY 90 Days #90 tablet 01/29/21 07/16/21 Exemestane [Aromasin] 25 mg PO DAILY #30 tablet 05/28/21 07/16/21 Bimatoprost 0.01% Ophth Dops 1 drp EACHEYE DAILY 07/16/21 07/16/21 [Lumigan 0.01% Ophth Drops] Cefpodoxime Proxetil [Vantin] 100 mg PO Q12H #14 tablet 08/08/21 Meloxicam [Mobic] 7.5 mg PO BID PRN #20 tablet 08/08/21 oxyCODONE [Roxicodone] 5 mg PO Q4-6H PRN #14 tablet 08/09/21 - Allergies Allergies/Adverse Reactions: Allergies Allergy/AdvReac Type Severity Reaction Status Date / Time amoxicillin [From Augmentin] AdvReac Unknown Verified 08/09/21 02:34 clavulanic acid AdvReac Unknown Verified 08/09/21 02:34 [From Augmentin] - Social History Does the pt smoke?: No Smoking Status: Never smoker Does the pt drink ETOH?: No - Immunizations Immunizations are current?: Yes - POLST Patient has POLST: No PD ED PE NORMAL - Vitals Vital signs reviewed: Yes - General General: Alert and oriented X 3, No acute distress, Well developed/nourished - HEENT HEENT: PERRL, EOMI, Moist mucous membranes - Neck Neck: Supple, no meningeal sign - Cardiac Cardiac: RRR, No murmur - Respiratory Respiratory: No respiratory distress, Clear bilaterally - Abdomen Abdomen: Soft, Non tender - Back Back: No CVA TTP - Derm Derm: Normal color, Warm and dry, No rash - Neuro Neuro: Alert and oriented X 3, content coordinator 2-12 intact Eye Opening: Spontaneous Motor: Obeys Commands Verbal: Oriented GCS Score: 15 Results - Vitals Vitals: Oxygen O2 Source Room air - Labs Labs: Laboratory Tests 08/09/21 03:46 Nasal Adenovirus (PCR) NOT DETECTED Nasal B. parapertussis DNA (PCR) NOT DETECTED Nasal Coronavir 229E PCR NOT DETECTED Nasal Coronavir HKU1 PCR NOT DETECTED Nasal Coronavir NL63 PCR NOT DETECTED Nasal Coronavir OC43 PCR NOT DETECTED Nasal Enterovir/Rhinovir PCR NOT DETECTED Nasal Influenza B PCR NOT DETECTED Nasal Influenza A PCR NOT DETECTED Nasal Parainfluen 1 PCR NOT DETECTED Nasal Parainfluen 2 PCR NOT DETECTED Nasal Parainfluen 3 PCR NOT DETECTED Nasal Parainfluen 4 PCR NOT DETECTED Nasal RSV (PCR) NOT DETECTED Nasal B.pertussis DNA PCR NOT DETECTED Nasal C.pneumoniae (PCR) NOT DETECTED Mati Human Metapneumo PCR NOT DETECTED Nasal M.pneumoniae (PCR) NOT DETECTED Nasal SARS-CoV-2 (PCR) NOT DETECTED - Rads (name of study) CT head Radiology: Prelim report reviewed, See rad report PD MEDICAL DECISION MAKING - ED course Complexity details: reviewed old records, reviewed results, re-evaluated patient, considered differential, d/w patient ED course: Presents with chief complaint of left-sided headache x 3-4 days. She also has had generalized malaise, fatigue, and myalgias with fevers over same time-frame, and was T+R from this ED yesterday after diagnosed with nonspecific URI as well as UTI (prescribed cephalosporin for the latter). She was also prescribed meloxicam for her headache, but has had no relief of the headache with this medication. On tonights visit, she has an unremarkable CT head and negative respiratory PCR swab including COVID-19. The cause of her headache is not determined at this time, but emergent causes seem unlikely based on H+P and CT head. She reports excellent relief with IM dilaudid. Results reviewed, return precautions discussed. Departure - Departure Disposition: Home, Self Care Clinical Impression: Headache Qualifiers: Headache type: unspecified Headache chronicity pattern: acute headache Intractability: not intractable Qualified Code(s): R51.9 - Headache, unspecified Condition: Good Instructions: ED Cephalgia Unspecified Follow-Up: Tristen Lobato MD [Primary Care Provider] - Prescriptions: oxyCODONE [Roxicodone] 5 mg PO Q4-6H PRN #14 tablet PRN Reason: Pain Comments: The cause of your headache is not clear at this time; your CT scan does not show any concerning abnormalities (there is some loss of cerebral volume which is an expected age-related finding). Your COVID swab is negative (as was your influenza swab; these were performed with the same swab). Follow up with your primary care provider, next available appointment. A prescription for oxycodone (pain medication) has been electronically submitted to [facility] pharmacy in [place]. I am prescribing a short course of narcotic pain medication for you. These are potentially dangerous and addictive medications that should be used carefully. These medications may constipate you. Take an jfgq-doa-gtbsbks stool softener (docusate) twice daily with plenty of water while taking these medications. If you go 24 hours without a bowel movement, take ldys-rqg-wqrhodi miralax, per package instructions. Do not drink or drive while taking these medications. If you received narcotic or sedating medications while in the emergency department, do not drive for 24 hours. Store this medication in a safe, secure place and out of reach of children. It is a violation of federal law to give or sell this medication to another person or to use in a manner other than prescribed. The ED will not refill narcotic prescriptions, including prescriptions lost or stolen. To dispose of unwanted medications: 1. [facility] at [address] in [place] has a medication drop box. They accept prescription medications (in p ill form) Wednesday through Wednesday 9:00 a.m. to 5:00 p.m. 2. The [facility] accepts prescription medications (in pill form only) for disposal year round. Call for more information. 3. Contact the [facility] for the next [facility] sponsored prescription drug collection event. , [phone], or [phone]; Discharge Date/Time: 08/09/21 08:00
[2021-08-09] MEDS ORDERED: HYDROmorphone 1 MG/ML CARPUJECT IM STA (03:56)
[2021-08-09 05:05] LABS: B. PARAPERTUSSIS- RESP PCR PAN NOT DETECTED; B. PERTUSSIS- RESP PCR PANEL NOT DETECTED; C. PNEUMONIAE- RESP PCR PANEL NOT DETECTED; CORONAVIRUS 229E-RESP PCR NOT DETECTED; CORONAVIRUS HKU1-RESP PCR NOT DETECTED; CORONAVIRUS NL63-RESP PCR NOT DETECTED; CORONAVIRUS OC43-RESP PCR NOT DETECTED; HUMAN METAPNEUMOVIRUS NOT DETECTED; INFLUENZA A- RESP PCR PANEL NOT DETECTED; INFLUENZA B - RESP PCR PANEL NOT DETECTED; M. PNEUMONIAE- RESP PCR PANEL NOT DETECTED; PARAINFLUENZA VIRUS 1 NOT DETECTED; PARAINFLUENZA VIRUS 2 NOT DETECTED; PARAINFLUENZA VIRUS 3 NOT DETECTED; PARAINFLUENZA VIRUS 4 NOT DETECTED; RHINOVIRUS/ENTEROVIRUS NOT DETECTED; RSV- RESP PCR PANEL NOT DETECTED; SARS-CoV-2 -RESP PCR PANEL NOT DETECTED
[2021-08-09] MEDS ORDERED: oxyCODONE 5 MG TABLET PO STA (07:02)
[2021-08-09 07:43] VITALS: BP 134/72
--- NOTE | 2021-08-09 08:22 | CT Report ---
PROCEDURE: HEAD WO INDICATIONS: severe headache TECHNIQUE: Noncontrast 4.5 mm thick angled axial sections acquired from the foramen magnum to the vertex. For r adiation dose reduction, the following was used: automated exposure control, adjustment of mA and/or kV according to patient size. COMPARISON: Correlation is made with the accompanying head CT, 08/08/2021. FINDINGS: Image quality: Excellent. CSF spaces: Basal cisterns are patent. No extra-axial fluid collections. Ventricles are normal in size and shape. Brain: No midline shift. No intracranial masses or hemorrhage. Laura-white matter interface is norm al. Age-appropriate brain parenchymal volume loss and chronic small vessel ischemic change can be se en. Skull and face: Calvarium and visualized facial bones are intact, without suspicious lesions. Sinuses: Visualized sinuses and mastoids are clear. IMPRESSION: Unremarkable intracranial study for age, without acute intracranial hemorrhage. Note: No significant discrepancy from the preliminary report. Reviewed by: Luis Santamaria MD on 08/09/2021 7:21 AM [facility] Approved by: Luis Santamaria MD on 08/09/2021 7:21 AM [facility] Station ID: [id number]
== END 2021-08-09 08:00 | disposition home or self-care (01) ==
LOC: ED 02:16
DX: R51.9 Headache, unspecified (principal); Z20.822 Contact with and (suspected) exposure to COVID-19
CPT/HCPCS: 70450; 87631; 96372; 99284; A9270; J1170; 0202U

== ENCOUNTER 2021-10-09 07:18 | Outpatient (CLI) | payer MEDICARE, OTHER ==
[2021-10-09 08:24] LABS: ALBUMIN 4.3 g/dL (3.2-5.5); ALBUMIN/GLOBULIN RATIO 1.5 (1.0-2.2); ALKALINE PHOSPHATASE 77 IU/L (42-121); ALT ALANINE AMINOTRANSFERASE 21 IU/L (10-60); AST ASPARTATE AMINOTRANSFERASE 24 IU/L (10-42); BILIRUBIN,TOTAL 0.8 mg/dL (0.2-1.0); BUN - BLOOD UREA NITROGEN 11 mg/dL (6-20); CALCIUM 9.6 mg/dL (8.5-10.3); CARBON DIOXIDE - CO2 25 mmol/L (21-32); CHLORIDE 101 mmol/L (101-111); CHOLESTEROL 156 mg/dL; CREATININE 0.6 mg/dL (0.4-1.0); GFR - MDRD 98 (>89); GLUCOSE 100 mg/dL (70-100); HDL CHOLESTEROL 52 mg/dL; LDL CHOLESTEROL,CALCULATED 69 mg/dL; LDL/HDL RATIO 1.3 (<4.4); POTASSIUM 3.6 mmol/L (3.5-5.0); SODIUM 137 mmol/L (135-145); TOTAL PROTEIN 7.1 g/dL (6.7-8.2); TRIGLYCERIDES 174 mg/dL; VLDL CHOLESTEROL 35 mg/dL
[2021-10-09 08:36] LABS: THYROID STIMULATING HORMONE 1.86 uIU/mL (0.34-5.60)
[2021-10-09 08:39] LABS: BASOPHILS % (AUTO) 0.5 %; EOSINOPHILS # (AUTO) 0.2 10^3/uL (0.0-0.7); EOSINOPHILS % (AUTO) 2.4 %; HCT - HEMATOCRIT 39.8 % (37.0-47.0); HGB - HEMOGLOBIN 13.5 g/dL (12.0-16.0); LYMPHOCYTES # (AUTO) 2.3 10^3/uL (1.5-3.5); LYMPHOCYTES % (AUTO) 35.2 %; MEAN CORPUSCULAR HEMOGLOBIN 30.2 pg (27.0-31.0); MEAN CORPUSCULAR HGB CONC 33.9 g/dL (32.0-36.0); MEAN PLATELET VOLUME 10.8 fL (7.9-10.8); MONOCYTES # (AUTO) 0.6 10^3/uL (0.0-1.0); MONOCYTES % (AUTO) 8.4 %; NEUTROPHILS # (AUTO) 3.5 10^3/uL (1.5-6.6); NEUTROPHILS % (AUTO) 53.3 %; PLT - PLATELET COUNT 241 10^3/uL (130-450); RED BLOOD COUNT 4.47 10^6/uL (4.20-5.40); RED CELL DISTRIBUTION WIDTH 14.5 % (12.0-15.0); WHITE BLOOD COUNT 6.6 x10^3/uL (4.8-10.8)
[2021-10-09 11:25] LABS: ESTIMATED AVERAGE GLUCOSE 114 mg/dL (70-100); HEMOGLOBIN A1c% 5.6 % (4.27-6.07)
[2021-10-10 09:08] LABS: HEPATITIS C ANTIBODY NON-REACTIVE (NON-REACTIVE)
== END 2021-10-09 07:19 | disposition home or self-care (01) ==
LOC: LAB 07:18
PROVIDERS: ATTEND Physician Assistant
DX: Z01.84 Encounter for antibody response examination (principal); E78.2 Mixed hyperlipidemia; Z13.9 Encounter for screening, unspecified; M85.80 Other specified disorders of bone density and structure, unspecified site; Z13.1 Encounter for screening for diabetes mellitus; Z13.29 Encounter for screening for other suspected endocrine disorder; Z11.59 Encounter for screening for other viral diseases
CPT/HCPCS: 36415; 80053; 80061; 82306; 83036; 83721; 84443; 85025; 86803

== ENCOUNTER 2022-02-25 08:26 | Outpatient (CLI) | payer MEDICARE, OTHER ==
--- NOTE | 2022-02-25 09:41 | DEXA Report ---
PROCEDURE: Dexa Spine and/or Hip INDICATIONS: POST MENOPAUSAL TECHNIQUE: Dual energy x-ray absorptiometry (DXA) was performed on a Prompt.ly System. Regions measur ed are the AP Spine, femoral neck, and if needed forearm. COMPARISON: None. FINDINGS: Lumbar Spine: Bone Mineral Density 0.968 g/cm/cm,T score -1.8, osteopenia. Bone density decreased 4.6% compared to prior. Left total Hip: Bone Mineral Density 0.850 g/cm/cm,T score -1.3, osteopenia. Bone density decreased 4.3% compared to prior. Left Femoral Neck: Bone Mineral Density 0.780 g/cm/cm, T score -1.9, osteopenia (T score greater or equal to -1.0: NORMAL) (T score from -1.1 to -2.4: OSTEOPENIA) (T score less than or equal to -2.5 to: OSTEOPOROSIS) Impression: Osteopenia. Bone density has decreased compared to prior as above. Patients with diagnosis of osteoporosis or osteopenia should have regular bone mineral density assess ment. For those eligible for Medicare, routine testing is allowed once every 2 years. Testing frequ ency can be increased for patients who have rapidly progressing disease or for those who are receivin g medical therapy to restore bone mass. Reviewed by: Brandon Thompson on 02/25/2022 9:39 AM PDT Approved by: Brandon Thompson on 02/25/2022 9:39 AM PDT Station ID: [id number]
== END 2022-02-25 08:27 | disposition home or self-care (01) ==
LOC: DI 08:26
PROVIDERS: ATTEND Physician Assistant
DX: Z78.0 Asymptomatic menopausal state (principal); M85.89 Other specified disorders of bone density and structure, multiple sites

== ENCOUNTER 2022-06-16 09:07 | Outpatient (CLI) | payer MEDICARE, OTHER ==
[2022-06-16 09:52] VITALS: BP 132/78
--- NOTE | 2022-06-16 09:52 | SLEEP CARE CONSULTATION ---
Information from patient questionnaire entered by Marisa Walton. I have reviewed and concur with the information entered by Marisa Walton. This document represents the service I personally performed and the decisions made by me, Sofiya Cherry ARNP. History of Present Illness Service Date and Time: 06/16/2022 09 Reason for Visit: New patient Chief Complaint: reports: Snoring Date of Onset: 5 years Usual bedtime: 10 PM Time it takes to fall asleep: 10-15 mins Snores at night: Yes Observed to quit breathing while asleep: No Number of times waking at night: 1-2 usually Reasons for waking at night: reports: Choking (only when on back with occasional naps), Bathroom Toss, Turn, or Twitch while sleeping: No Recalls having dreams: Yes Usually gets out of bed at: [id number] Feels refreshed in the morning: Yes Morning headache: No Sleepy or fatigued during the day: Yes Ever fallen asleep while driving: No Takes day naps: Yes (3 times a week; for 30-60 mins) Dreams during day naps: No Prior sleep studies: No Additional HPI information: I had the pleasure of seeing NADJA DELCID today regarding the possibility of her having a sleep disorder. Her current complaints are snoring and some daytime fatigue. She states her has told her she snores and "blows" through her mouth. He has not noted any pauses in breathing. She has heard herself make choking sounds when she sleeps on her back. She says this only happens occasionally and she is usually falling asleep for her nap. She is normally a side sleeper. She will nap about 3 days a week for 30 minutes to 1 hour but she feels this is a perk from being retired. She does have a sister who has sleep apnea and uses a PAP machine. Her has sleep apnea and uses an oral device. She is here to get this checked. - Parasomnia Symptoms Ever been unable to move upon waking from sleep: No Walks in sleep: No Talks in sleep: No Ever acted out dreams in sleep: No Ever felt weak in the knees when startled or emotional: No Bothered by creepy, crawly, restless sensations in legs: No Problems with memory or concentration: No Subjective Initial [place] Sleepiness Scale score: 5 (06-16-2022) Past Medical History Past Medical History: reports: Arthritis, Other (high cholesterol, estrogen suppression for hx of breast cancer (tumor removed)) Social History The patient's occupation is a RE. Patient is and lives in [place]. Have you smoked in the past 12 months: No Cigarettes per day (20/pack): 2 (social smoker) Years of smokin Quit date: 2009 Smoking Pack Years: 3.5 Alcohol use: No Caffeine use: No Family History Family history of sleep disordered breathing: Yes (Spouse too) Family Hx Sleep Apnea: Sibling: Sleep apnea - Treated Allergies and Home Medications Drug allergies reviewed: Yes (Augmentin (diarrhea)) Home medication list reviewed: Yes Allergy and home medication list: Medications: see list provided and updated in chart Review of Systems Review of systems same as previous: Yes Weight gain over past 5 years: 15 Weight loss over past 5 years: 15 Cardiovascular: denies: high blood pressure Gastrointestinal: denies: heartburn Psychiatric: denies: anxiety, depression Ear/Nose/Throat: reports: tonsillectomy, wisdom teeth removed Musculoskeletal: reports: joint pain Physical Exam Vital signs obtained and entered by: MARISA Horta MA Blood Pressure: 132/78 (LEFT ARM) Cuff size: regular Heart Rate: 83 O2 Saturation: 97 Height: 5 ft 2.25 in Weight: 152 lb 12.8 oz Body Mass Index: 27.7 BMI Classification: Overweight Neck circumference: 15 (inches) Mouth and throat: narrow oropharynx Soft palate: long Hard palate: normal Uvula: normal Uvula visualization: 25% Mallampati Class III Tongue: enlarged in size with teeth rojas on lateral edges Tonsils: absent bilaterally Neck: normal w/o lymphadenopathy or thyromegaly Heart: regular rate and rhythm Lungs: clear bilaterally Impression and Plan 1. Suspected Obstructive Sleep Apnea-Hypopnea Syndrome, as suggested by a history of loud and irregular snoring, gasping or choking in sleep and daytime fatigue. Narrow oropharynx and obesity are common predisposing factors for obstructive sleep apnea-hypopnea syndrome. I recommend proceeding to polysomnography to confirm the diagnosis and to assess severity. If the patient has significant sleep disordered breathing, a manual CPAP titration study will also be performed to find the optimal treatment pressure. I informed the patient of what the sleep studies involve and after some discussion, obtained agreement to proceed. The pathophysiology of obstructive sleep apnea-hypopnea syndrome was discussed with the patient and health risks of cardiovascular and cerebrovascular disease if not treated. Risks of drowsy driving discussed in detail and patient advised to avoid long distance driving and to last puller at the first sign of drowsiness. Patient agreed to plan. * Schedule polysomnography * Avoid long distance driving or driving when feeling sleepy. * Avoid alcohol, sedative and muscle relaxant around bedtime. * Attempt to lose weight. * Review instructions provided by trained office staff on how to prepare for the sleep study. * Return for follow-up after sleep study completed. Counseling Topics: Weight loss health impact Visit Type: In Office Time Spent with Patient (minutes): 32 Provider Statement: I spent 100% of the Face to Face Visit with the patient with greater than 50% spent counseling the patient and coordination of care.
== END 2022-06-16 09:08 | disposition home or self-care (01) ==
LOC: SC 09:07
PROVIDERS: ATTEND Nurse Practitioner Family
DX: R53.83 Other fatigue (principal); R06.83 Snoring; E66.3 Overweight; Z68.27 Body mass index [BMI] 27.0-27.9, adult; Z87.891 Personal history of nicotine dependence
CPT/HCPCS: 99203; G0463; 99212

== ENCOUNTER 2022-07-10 07:28 | Outpatient (CLI) | payer MEDICARE, OTHER ==
--- NOTE | 2022-07-13 11:12 | Ultrasound Report ---
LIMITED ULTRASOUND OF LEFT BREAST AND AXILLA: 07/10/2022 CLINICAL: Palpable left breast lump. Patient returns today to evaluate an asymmetry in the left breas t. Comparison is made to exams dated: 07/10/2022 mammogram, 07/09/2021 mammogram, 01/28/2021 mammogram, mammogram, 01/15/2020 specimen, and 01/15/2020 localization - [facility]. Color flow and real-time ultrasound of the left breast 12-1 o'clock, 3 o'clock, and axilla regions w ere performed. Laura scale images of the real-time examination were reviewed. There is a 1.8 cm x 1.6 cm x 1.4 cm irregular, heterogeneous mass with a non-circumscribed margin in the left breast at 1 o'clock posterior depth 9 cm from the nipple. This correlates as palpated and with mammography findings. Color flow imaging demonstrates that there is mild adjacent vascularity. No internal vascular flow. IMPRESSION: PROBABLY BENIGN The 1.8 cm x 1.6 cm x 1.4 cm irregular mass in the left breast correlates to the palpable abnormality and the surgical site. This most likely is fat necrosis, scar and post surgical calcification, and is probably benign. Follow-up mammogram and ultrasound in 6 months is recommended. There is no abnormality seen in the left breast to correspond with the mammography finding at 3 o'sandro ck which likely represents normal fibroglandular tissue. A follow-up left mammogram and an ultrasound in 6 months is recommended to demonstrate stability. Findings and recommendations were conveyed to the patient at time of exam. This exam was interpreted at Station ID: [id number]. Electronically Signed By: Elvi arndt/:07/10/2022 09:58:18 Ultrasound BI-RADS: 3 Probably benign BI-RADS CATEGORY: (3) - 3 Mammo and [place] [id number] 6 month follow-up LATERALITY: (L)
--- NOTE | 2022-07-13 11:12 | Mammography Report ---
BILATERAL DIGITAL DIAGNOSTIC MAMMOGRAM 3D/2D WITH EXAGGERATED CC: 07/10/2022 CLINICAL: Personal history of left breast cancer. Due for bilateral. Comparison is made to exams dated: 07/09/2021 mammogram, 01/28/2021 mammogram, 07/23/2020 mammogram - [facility], 12/20/2019 breast MRI - [facility], 12/13/2019 mammogram - [facility], and 12/06/2019 mammogram - [facility]. There are scattered areas of fibroglandular density in both breasts (category b / 25%-50% glandular t issue). There is a 1.6 cm round area of fat necrosis with grouped dystrophic suture calcifications in the lef t breast at 12 o'clock posterior depth. This correlates as palpated. There are surgical clips and a rchitectural distortion associated with the fat necrosis consistent with prior surgery. There also is a possible developing irregular asymmetry in the left breast at 3-4 o'clock anterior de pth. This is not seen in additional views, but in the CC view, is more prominent. No other significant masses, calcifications, or other findings are seen in either breast. IMPRESSION: INCOMPLETE: NEEDS ADDITIONAL IMAGING EVALUATION The 1.6 cm round fat necrosis in the left breast at 12 o'clock posterior depth is consistent with a p revious surgery. An ultrasound is recommended for confirmation. The possible developing irregular asymmetry in the left breast at 4 o'clock anterior depth most likel y is fibroglandular tissue or fibrosis but remains indeterminate. An ultrasound is recommended. Ultrasound of both areas was performed immediately following this exam. This exam was interpreted at Station ID: [id number]. NOTE: For mammograms, a report in lay terms will be sent to the patient. Approximately 15% of breast malignancies will not be visualized mammographically. In the management of a palpable breast mass, a negative mammogram must not discourage biopsy of a clinically suspicious lesion. Electronically Signed By: Elvi arndt/:07/10/2022 08:40:13 ACR BI-RADS Category 0: Incomplete 3340F PARENCHYMAL PATTERN: (A) - The breast(s) demonstrate(s) scattered fibroglandular densities. BI-RADS CATEGORY: (0) - 0 Ultrasound [id number] Immediate follow-up LATERALITY: (B)
== END 2022-07-10 07:29 | disposition home or self-care (01) ==
LOC: DI 07:28
PROVIDERS: ATTEND Internal Medicine
DX: Z08 Encounter for follow-up examination after completed treatment for malignant neoplasm (principal); Z85.3 Personal history of malignant neoplasm of breast; N63.25 Unspecified lump in the left breast, overlapping quadrants

== ENCOUNTER 2022-07-20 20:38 | Outpatient (CLI) | payer MEDICARE, OTHER | END 2022-07-20 20:39 | disposition home or self-care (01) | LOC: SC 20:38 | PROVIDERS: ATTEND Nurse Practitioner Family | DX: G47.33 Obstructive sleep apnea (adult) (pediatric) (principal); G47.61 Periodic limb movement disorder | CPT/HCPCS: 95810 ==

== ENCOUNTER 2022-08-28 09:13 | Outpatient (CLI) | payer MEDICARE, OTHER ==
[2022-08-28 09:46] VITALS: BP 122/72
--- NOTE | 2022-08-28 09:46 | SLEEP CARE CONSULTATION ---
Information from patient questionnaire entered by Marisa Walton. I have reviewed and concur with the information entered by Marisa Walton. This document represents the service I personally performed and the decisions made by , Sofiya Cherry ARNP. History of Present Illness Service Date and Time: 08/28/2022912 Initial [place] Sleepiness Scale score: 5 Current [place] Sleepiness Scale score: 7 (08/28/22) Additional HPI information: NADJA DELCID returns for follow up and results of the recently performed polysomnography. I explained the pathophysiology behind obstructive sleep apnea. We then spent quite a bit of time discussing different treatment options. For mild obstructive sleep apnea, surgery and oral appliance are alternatives to nasal CPAP therapy but in moderate or severe cases, nasal CPAP is the most effective and reliable treatment. I reviewed the impact of weight changes on sleep apnea and strongly recommended losing weight. After some discussion, the patient opted to go with the oral appliance. Patient was cautioned about risks of drowsy driving until sleepiness symptoms resolve. Patient denies drowsy driving. Sleep Study - Results Type of Sleep Study: Polysomnography (COMPLETED 07/20/22) Prior sleep studies: No Polysomnography/Home Sleep Study results: IMPRESSION: The quality of the study is good. The patient had reduced sleep efficiency due to a prolonged awakening in the second half of the night. The sleep architecture was abnormal for sleep fragmentation and reduced amount of time spent in REM sleep. Respiratory monitoring showed moderate obstructive sleep apnea-hypopnea (AHI = 28.2) associated with frequent arousals, oxyhemoglobin desaturation and mild hypoxia (lauro oxygen saturation of 84%). The respiratory events occurred independently of sleep stage and body position (supine AHI = 31.3; non-supine = 25.31). Snore was moderate to loud in intensity. There was mild periodic leg movement of sleep contributing to the sleep fragmentation. Cardiac rhythm was normal sinus rhythm with occasional premature ventricular contractions. No abnormal behavior (parasomnia) observed during the night. Allergies and Home Medications Drug allergies reviewed: Yes (amoxicilin, clavulanic acid) Home medication list reviewed: Yes (no changes) Review of Systems Review of systems same as previous: No (cortisone injection knee) Physical Exam Vital signs obtained and entered by: MARISA Horta MA Blood Pressure: 122/72 (LEFT ARM) Cuff size: regular Heart Rate: 75 O2 Saturation: 96 Height: 5 ft 2.25 in Weight: 154 lb 12.8 oz Body Mass Index: 28.0 BMI Classification: Overweight Impression and Plan 1. Obstructive Sleep Apnea-Hypopnea Syndrome, moderate, with lowest oxygen saturation of 84%. Obviously this is the cause of the patients symptoms of unrefreshed sleep, and excessive daytime sleepiness. After some discussion, the patient opted to go with the oral appliance. A list of accredited dentists and one non-accredited dentist in general area to call for a consult given to evelia vázquez. A prescription was given to start process. Patient advised to check insurance to see if oral appliance is covered. Some dentists do not take Medicare. I will have patient follow up in 3 months to check effectiveness of treatment. If reduction of symptoms and comfortable with treatment, a polysomnography will be ordered using the oral appliance to check efficacy of treatment. 2. Periodic limb movement, mild, that did add fragmentation to patients sleep. Periodic limb movement of sleep (PLMS) is characterized by episodes of repetitive limb movements that occur during sleep and usually involve the lower limbs. The etiology is unknown. Caffeine can aggravate PLMS and should be avoided. Sleep hygiene methods can also improve sleep as well as lifestyle changes such as regular exercise. Patient was advised that no treatment is needed at this time. If symptoms increase, then further evaluation is indicated. * Oral appliance. * Attempt to lose weight. * The patient is again cautioned about driving * Return one month after oral appliance obtained. I will assess response to therapy at that time. Counseling Topics: Sleeping position, Weight loss health impact Visit Type: In Office Time Spent with Patient (minutes): 20 Provider Statement: I spent 100% of the Face to Face Visit with the patient with greater than 50% spent counseling the patient and coordination of care.
== END 2022-08-28 09:14 | disposition home or self-care (01) ==
LOC: SC 09:13
PROVIDERS: ATTEND Nurse Practitioner Family
DX: G47.33 Obstructive sleep apnea (adult) (pediatric) (principal); G47.61 Periodic limb movement disorder; E66.3 Overweight; Z68.28 Body mass index [BMI] 28.0-28.9, adult
CPT/HCPCS: 99213; G0463; 99212

== ENCOUNTER 2022-11-20 07:30 | Outpatient (CLI) | payer MEDICARE, OTHER ==
[2022-11-20 07:44] LABS: BASOPHILS # (AUTO) 0.1 10^3/uL (0.0-0.1); BASOPHILS % (AUTO) 0.4 %; EOSINOPHILS # (AUTO) 0.1 10^3/uL (0.0-0.7); EOSINOPHILS % (AUTO) 0.6 %; HCT - HEMATOCRIT 40.6 % (37.0-47.0); HGB - HEMOGLOBIN 13.4 g/dL (12.0-16.0); LYMPHOCYTES # (AUTO) 3.1 10^3/uL (1.5-3.5); LYMPHOCYTES % (AUTO) 25.3 %; MEAN CORPUSCULAR HEMOGLOBIN 30.5 pg (27.0-31.0); MEAN CORPUSCULAR VOLUME 92.5 fL (81.0-99.0); MEAN PLATELET VOLUME 9.9 fL (7.9-10.8); MONOCYTES % (AUTO) 7.8 %; NEUTROPHILS # (AUTO) 8.1 10^3/uL (1.5-6.6); NEUTROPHILS % (AUTO) 65.4 %; PLT - PLATELET COUNT 245 10^3/uL (130-450); RED BLOOD COUNT 4.39 10^6/uL (4.20-5.40); RED CELL DISTRIBUTION WIDTH 14.5 % (12.0-15.0); WHITE BLOOD COUNT 12.4 x10^3/uL (4.8-10.8)
[2022-11-20 08:04] LABS: ALBUMIN 4.1 g/dL (3.2-5.5); ALBUMIN/GLOBULIN RATIO 1.5 (1.0-2.2); ALKALINE PHOSPHATASE 64 IU/L (42-121); ALT ALANINE AMINOTRANSFERASE 21 IU/L (10-60); AST ASPARTATE AMINOTRANSFERASE 26 IU/L (10-42); BILIRUBIN,TOTAL 0.4 mg/dL (0.2-1.0); BUN - BLOOD UREA NITROGEN 17 mg/dL (6-20); CALCIUM 9.2 mg/dL (8.5-10.3); CARBON DIOXIDE - CO2 28 mmol/L (21-32); CHLORIDE 101 mmol/L (101-111); CHOL/HDL RATIO 2.2 (<4.4); CHOLESTEROL 166 mg/dL; CREATININE 0.7 mg/dL (0.4-1.0); GFR - MDRD 82 (>89); GLUCOSE 101 mg/dL (70-100); HDL CHOLESTEROL 75 mg/dL; LDL CHOLESTEROL,CALCULATED 70 mg/dL; LDL/HDL RATIO 0.9 (<4.4); POTASSIUM 4.5 mmol/L (3.5-5.0); SODIUM 139 mmol/L (135-145); TOTAL PROTEIN 6.8 g/dL (6.7-8.2); TRIGLYCERIDES 104 mg/dL; VLDL CHOLESTEROL 21 mg/dL
== END 2022-11-20 07:31 | disposition home or self-care (01) ==
LOC: LAB 07:30
PROVIDERS: ATTEND Physician Assistant
DX: E78.2 Mixed hyperlipidemia (principal); M85.80 Other specified disorders of bone density and structure, unspecified site; Z79.899 Other long term (current) drug therapy
CPT/HCPCS: 36415; 80053; 80061; 83721; 85025

== ENCOUNTER 2023-01-22 08:10 | Outpatient (CLI) | payer MEDICARE, OTHER ==
--- NOTE | 2023-01-22 11:30 | Mammography Report ---
UNILATERAL LEFT DIGITAL DIAGNOSTIC MAMMOGRAM 3D/2D WITH EXAGGERATED CC: 01/22/2023 CLINICAL: Patient returns for a 6 month follow up of the left breast. Comparison is made to exams dated: 07/10/2022 mammogram, 01/28/2021 mammogram, 07/09/2021 mammogram, mammogram, 01/15/2020 localization - [facility], and 12/13/2019 mammogram - [facility] location. There are scattered areas of fibroglandular density in the left breast (category b / 25%-50% glandula r tissue). There is a 1.6 cm round probable fat necrosis with grouped dystrophic calcifications in the left mir[address] at 12 o'clock posterior depth. This is not significantly changed and correlates as palpated. The re are surgical clips and architectural distortion associated with the area of probable fat necrosis. Slight increase in dystrophic calcifications. There also is an asymmetry in the left breast at 4 o'clock anterior depth. This was not seen in prev ious additional views. This is not significantly changed and was not seen on the prior ultrasound. No other significant masses or calcifications are seen in the breast. IMPRESSION: INCOMPLETE: NEEDS ADDITIONAL IMAGING EVALUATION The 1.6 cm round probable fat necrosis in the left breast at 12 o'clock posterior depth is indetermin ate. An ultrasound is recommended for further evaluation and is scheduled to immediately follow this examination. The asymmetry in the left breast at 4 o'clock anterior depth likely represents fibroglandular tissue and is indeterminate. An ultrasound is recommended for further evaluation and is scheduled to immediately follow this exami nation. This exam was interpreted at Station ID: [id number]. NOTE: For mammograms, a report in lay terms will be sent to the patient. Approximately 15% of breast malignancies will not be visualized mammographically. In the management of a palpable breast mass, a negative mammogram must not discourage biopsy of a clinically suspicious lesion. Electronically Signed By: Zachery Wallis M.D. aty/:01/22/2023 09:04:31 ACR BI-RADS Category 0: Incomplete 3340F PARENCHYMAL PATTERN: (A) - The breast(s) demonstrate(s) scattered fibroglandular densities. BI-RADS CATEGORY: (0) - 0 Ultrasound [id number] Immediate follow-up LATERALITY: (L)
--- NOTE | 2023-01-22 11:30 | Ultrasound Report ---
LIMITED ULTRASOUND OF LEFT BREAST AND AXILLA: 01/22/2023 CLINICAL: Patient returns today to evaluate a focal asymmetry in the left breast. Comparison is made to exams dated: 01/22/2023 mammogram, 07/10/2022 ultrasound, 07/10/2022 mammogram, 09/09/2020 mammogram, 01/28/2021 mammogram, and 07/23/2020 mammogram - [facility]. Color flow and real-time ultrasound of the left breast 1 o'clock, and axilla regions were performed. Laura scale images of the real-time examination were reviewed. There is a 1.8 cm x 1.7 cm x 1.2 cm irregular mass with a non-circumscribed margin in the left breast at 1 o'clock posterior depth 9 cm from the nipple. This irregular mass is heterogeneously echogenic . This abnormality is not significantly changed and correlates as palpated and with mammography find ings. There are calcifications within the mass consistent with dystrophic calcifications seen on santiago mographic evaluation. Color flow imaging demonstrates that there is an adjacent vascularity. No significant abnormalities were seen sonographically in the left axilla. IMPRESSION: PROBABLY BENIGN The 1.8 cm x 1.7 cm x 1.2 cm irregular mass in the left breast most likely is fat necrosis and is pro bably benign. There is no abnormality seen in the left breast to correspond with the mammography finding at 3 o'sandro ck which likely represents normal fibroglandular tissue. A follow-up bilateral mammogram and a left ultrasound in 6 months is recommended to demonstrate stabi lity. If findiings are stable and/or show expected evolution of post operative changes and fat necro sis, the patient should be returned to screening schedule at that time. Findings and recommendations were conveyed to the patient during today's evaluation. This exam was interpreted at Station ID: [id number]. Electronically Signed By: Zachery Wallis M.D. aty/:01/22/2023 10:03:16 Ultrasound BI-RADS: 3 Probably benign BI-RADS CATEGORY: (3) - 3 Mammo and US [id number] 6 month follow-up LATERALITY: (B)
== END 2023-01-22 08:11 | disposition home or self-care (01) ==
LOC: DI 08:10
PROVIDERS: ATTEND Internal Medicine
DX: N63.21 Unspecified lump in the left breast, upper outer quadrant (principal); Z85.3 Personal history of malignant neoplasm of breast

== ENCOUNTER 2023-08-03 10:18 | Outpatient (CLI) | payer MEDICARE, OTHER ==
--- NOTE | 2023-08-04 08:13 | Mammography Report ---
BILATERAL DIGITAL DIAGNOSTIC MAMMOGRAM 3D/2D: 08/03/2023 CLINICAL: Patient returns for a 6 month follow up of the left breast, due for bilateral exam. Comparison is made to exams dated: 01/22/2023 mammogram, 07/09/2021 mammogram, 07/23/2020 mammogram - [facility], and 12/13/2019 mammogram - outside location. There are scattered areas of fibroglandular density in both breasts (category b / 25%-50% glandular t issue). There is a stable round area of probable fat necrosis with grouped dystrophic suture calcifications i n the left breast at 12 o'clock posterior depth. There are surgical clips and architectural distorti on associated with the fat necrosis. There also is a stable asymmetry in the left breast at 4 o'clock anterior depth. This is not seen in additional views. This was not seen on the prior ultrasound. No other significant masses, calcifications, or other findings are seen in either breast. IMPRESSION: INCOMPLETE: NEEDS ADDITIONAL IMAGING EVALUATION The area of fat necrosis in the left breast at 12 o'clock posterior depth is stable. An ultrasound i s recommended. The asymmetry in the left breast at 4 o'clock anterior depth likely represents fibroglandular tissue and is stable. An ultrasound is recommended. Ultrasound of both these areas was performed immediately following this exam. This exam was interpreted at Station ID: [id number]. NOTE: For mammograms, a report in lay terms will be sent to the patient. Approximately 15% of breast malignancies will not be visualized mammographically. In the management of a palpable breast mass, a negative mammogram must not discourage biopsy of a clinically suspicious lesion. Electronically Signed By: Elvi arndt/:08/03/2023 11:14:26 ACR BI-RADS Category 0: Incomplete 3340F PARENCHYMAL PATTERN: (A) - The breast(s) demonstrate(s) scattered fibroglandular densities. BI-RADS CATEGORY: (0) - 0 Ultrasound [id number] Immediate follow-up LATERALITY: (B)
--- NOTE | 2023-08-04 08:13 | Ultrasound Report ---
LIMITED ULTRASOUND OF LEFT BREAST: 08/03/2023 CLINICAL: 6 month follow-up Lumpectomy scar site. Comparison is made to exams dated: 01/22/2023 ultrasound, 01/22/2023 mammogram, 07/10/2022 ultrasound, and 07/10/2022 mammogram - [facility]. Color flow ultrasound of the left breast 1 o'clock region was performed. Laura scale images of the r eal-time examination were reviewed. There is a 1.3 cm x 1.1 cm x 1.1 cm irregular mass with a non-circumscribed margin in the left breast at 1 o'clock posterior depth 9 cm from the nipple. This irregular mass is heterogeneously echogenic . This abnormality is not significantly changed and correlates with mammography findings. There are calcifications within the mass as seen on mammography. Color flow imaging demonstrates that there i s no vascularity present. IMPRESSION: BENIGN There is no sonographic evidence of malignancy. The 1.3 cm x 1.1 cm x 1.1 cm irregular mass in the left breast has decreased in size, consistent with expected post surgical changes and is benign. Return to annual mammogram screening schedule is recommended. Findings and recommendations were conveyed to the patient at time of exam. This exam was interpreted at Station ID: [id number]. Electronically Signed By: Elvi arndt/:08/03/2023 11:34:17 letter sent: No_Letter Ultrasound BI-RADS: 2 Benign BI-RADS CATEGORY: (2) - 2 RECOMMENDATION: (ANNUAL) - Recommend routine annual screening mammography. [id number] return to screening LATERALITY: (B)
== END 2023-08-03 10:19 | disposition home or self-care (01) ==
LOC: DI 10:18
PROVIDERS: ATTEND Internal Medicine
DX: C50.912 Malignant neoplasm of unspecified site of left female breast (principal); Z85.3 Personal history of malignant neoplasm of breast; R92.323 Mammographic fibroglandular density, bilateral breasts; N63.21 Unspecified lump in the left breast, upper outer quadrant

== ENCOUNTER 2024-01-21 08:18 | Outpatient (CLI) | payer MEDICARE, OTHER ==
--- NOTE | 2024-01-21 08:47 | Sleep Patient Instructions ---
Sleep Center Visit Summary - Patient Visit Information Reason for Visit: Annual follow-up - Patient Instructions Additional Instructions: You will be completing a sleep study, either an in-lab polysomnography (PSG) or home sleep study (HST). You will follow-up in the sleep care office after the sleep study is completed to hear the results and talk about therapy, if needed. You will be called by our office staff to schedule this appointment, but you may contact us with any questions. - Clinic Information Contact: [facility] [address] [place] [address] [email or web address] T: [phone]
--- NOTE | 2024-01-21 08:56 | SLEEP CARE CONSULTATION ---
Information from patient questionnaire entered by Marisa Walton. I have reviewed and concur with the information entered by Marisa Walton. This document represents the service I personally performed and the decisions made by me, Sofiya Cherry ARNP. History of Present Illness Service Date and Time: 01/21/2024 0818 Previous diagnosis: Moderate, Obstructive Sleep Apnea-Hypopnea Syndrome AHI: 28.2 (on 07/20/22) Reason for follow up: annual (LAST SEEN 08/2022) Prior sleep studies: No Type of Sleep Study: Polysomnography (COMPLETED 07/20/22) HPI additional information: NADJA DELCID was diagnosed to have moderate, AHI 28.2, obstructive sleep apnea- hypopnea syndrome and returned today for annual follow-up. Her complaints today are snoring, observed pauses in breathing and daytime fatigue. When she was last here in the clinic an order for an oral appliance had been completed. She states she was unable to get it covered by her insurance and thus did not get one. She returns to the office to restart process to begin therapy for her sleep apnea. The patient tells me that she normally goes to bed around 10 pm, and it takes her minutes to fall asleep. She has been told that she snores loudly and irregularly at night. She has been observed to stop breathing in her sleep. Her bed partner can still sleep in the same bed. She can recall waking up on the average of 1 time during the night. Most of the time she wakes up because of bathroom. She has not awakened for her own snoring, choking, and having to gasp for air. There is a lot of tossing and turning in her sleep after returning to bed after going to bathroom. Generally she can recall having dreams. She usually wakes up at 07-0730 and feels refreshed. She usually does not have a morning headache. During the day she complains of feeling sleepy and fatigued. She has never fallen asleep while driving nor has any accident due to sleepiness. She usually will nap about 3-4 days a week for 30-60 minutes. If she naps, upon falling asleep during the day she denies having vivid dreams. She denies having impaired concentration during the day. There is no somniloquy (sleep talking) or somnambulism (sleep walking). Sleep Study - Results Type of Sleep Study: Polysomnography (COMPLETED 07/20/22) Prior sleep studies: No Subjective Initial [place] Sleepiness Scale score: 5 Current [place] Sleepiness Scale score: 8 (01/21/24) Allergies and Home Medications Known drug allergies: Yes (as listed) Drug allergies reviewed: Yes Home medication list reviewed: Yes (no changes) Allergy and home medication list: Allergies amoxicillin [From Augmentin] Adverse Reaction (Verified 01/19/24 15:33) Unknown clavulanic acid [From Augmentin] Adverse Reaction (Verified 01/19/24 15:33) Unknown Review of Systems Review of systems same as previous: Yes (NO CHANGE) Physical Exam Vital signs obtained and entered by: MARISA Horta MA Blood Pressure: 154/82 (RIGHT ARM) Cuff size: regular Heart Rate: 74 O2 Saturation: 95 Height: 5 ft 2.25 in Weight: 167 lb 9.6 oz Body Mass Index: 30.4 BMI Classification: Obese Impression and Plan 1. Obstructive Sleep Apnea-Hypopnea Syndrome, moderate. She was unable to get an oral appliance because Medicare insurance would not cover the cost. She returns today to restart process to treat her sleep apnea. I recommend proceeding to polysomnography to confirm the diagnosis and to assess severity. I obtained agreement to proceed. The pathophysiology of obstructive sleep apnea- hypopnea syndrome was discussed with the patient and health risks of cardiovascular and cerebrovascular disease if not treated. Risks of drowsy driving discussed in detail and patient advised to avoid long distance driving and to stick puller at the first sign of drowsiness. Patient agreed to plan. Patient's apnea severity and rationale for treatment to reduce apnea, improve sleep quality and reduce cardiovascular and cerebrovascular events was reviewed. 2. Obesity, unspecified. Currently patients BMI is 30.4. Obesity increases the risk of apnea, CPAP pressure requirements and overall health risks especially cardiovascular and diabetes. Thus patient is advised to lose weight. * Schedule polysomnography/HST * Avoid long distance driving or driving when feeling sleepy. * Avoid alcohol, sedative and muscle relaxant around bedtime. * Attempt to lose weight. * Review instructions provided by trained office staff on how to prepare for the sleep study. * Return for follow-up after sleep study completed. Counseling Topics: Weight loss health impact Plan: PSG/HST and follow up Visit Type: In Office Time Spent with Patient (minutes): 21 Provider Statement: I spent 100% of the Face to Face Visit with the patient with greater than 50% spent counseling the patient and coordination of care.
[2024-01-21 09:02] VITALS: BP 154/82; O2SAT 95
== END 2024-01-21 08:19 | disposition home or self-care (01) ==
LOC: SC 08:18
PROVIDERS: ATTEND Nurse Practitioner Family
DX: G47.33 Obstructive sleep apnea (adult) (pediatric) (principal); E66.9 Obesity, unspecified; Z68.30 Body mass index [BMI] 30.0-30.9, adult
CPT/HCPCS: 99213; G0463; 99212

== ENCOUNTER 2024-01-25 08:25 | Outpatient (CLI) | payer MEDICARE, OTHER | END 2024-01-25 08:26 | disposition home or self-care (01) | LOC: SC 08:25 | PROVIDERS: ATTEND Nurse Practitioner Family | DX: G47.33 Obstructive sleep apnea (adult) (pediatric) (principal); E66.9 Obesity, unspecified; Z68.30 Body mass index [BMI] 30.0-30.9, adult | CPT/HCPCS: G0399 ×2; 95806 ==

== ENCOUNTER 2024-03-01 09:42 | Outpatient (CLI) | payer MEDICARE, OTHER ==
--- NOTE | 2024-03-01 10:14 | Sleep Patient Instructions ---
Sleep Center Visit Summary - Patient Visit Information Reason for Visit: Sleep study follow-up - Patient Instructions Instructions Attached: Apnea Sleep Mouthpieces Additional Instructions: You have opted for an oral mandibular appliance to control your sleep apnea. A list of certified dentists in the area was provided for you to find a dentist to have your oral appliance made. Once you have the device, please call and make a follow up appointment. We need to see you after you have been using the appliance for a month. We will evaluate your response to therapy and order a follow up sleep study to check efficiency of treatment. Please call office to schedule a follow up appointment in the sleep care office one month after obtaining new device. - Clinic Information Contact: [facility] [address] [place] [address] [email or web address] T: [phone]
--- NOTE | 2024-03-01 10:19 | SLEEP CARE CONSULTATION ---
Information from patient questionnaire entered by Marisa Walton. I have reviewed and concur with the information entered by Marisa Walton. This document represents the service I personally performed and the decisions made by , Sofiya Cherry ARNP. History of Present Illness Service Date and Time: 03/01/2024 0942 Initial [place] Sleepiness Scale score: 5 Current [place] Sleepiness Scale score: 8 (03/01/24) Additional HPI information: NADJA DELCID returns for follow up and results of the recently performed home sleep study. The sleep study done on 01/26/2024 showed moderate obstructive sleep apnea with an average AHI of 17.7 and lauro oxygen saturation of 83%. I explained the pathophysiology behind obstructive sleep apnea. We then spent quite a bit of time discussing different treatment options. For mild obstructive sleep apnea, surgery and oral appliance are alternatives to nasal CPAP therapy but in moderate or severe cases, nasal CPAP is the most effective and reliable treatment. I reviewed the impact of weight changes on sleep apnea and strongly recommended losing weight. After some discussion, the patient opted to go with the oral appliance. Patient counseled not drink alcohol less than 4 hours before bedtime as it can increase snoring and apnea. Patient was cautioned about risks of drowsy driving until sleepiness symptoms resolve. Patient denies drowsy driving. Sleep Study - Results Type of Sleep Study: Home sleep study (COMPLETED 07/20/22 HST COMPLETED 01/25/24) Prior sleep studies: No Polysomnography/Home Sleep Study results: Physician Impression: The quality of the study is good. The length of the study is adequate (> 240 minutes). Please also see the tabulated and graphic data. 1. Obstructive Sleep Apnea-Hypopnea (ICD-10 G47.33), moderate, with an AHI of 17.7/hr and lauro SaO2 of 83%. During the study, the patient had 77 apneas (77 obstructive, 0 central, 0 mixed) and 80 hypopneas. The longest episode lasted 97.5 seconds. The respiratory events occurred more frequently during supine sleep (supine AHI was 23.4 and non-supine, 11.90). 2. Hypoxemia (ICD-10 R09.02), mild, with the lowest oxygen saturation of 83 % and 10.2 minutes with SaO2 under 90%. Baseline oxygen saturation was normal (Average oxygen saturation was 94%). Allergies and Home Medications Known drug allergies: Yes (as listed) Drug allergies reviewed: Yes Home medication list reviewed: Yes (no changes) Allergy and home medication list: Allergies amoxicillin [From Augmentin] Adverse Reaction (Verified 02/28/24 09:21) Unknown clavulanic acid [From Augmentin] Adverse Reaction (Verified 02/28/24 09:21) Unknown Review of Systems Review of systems same as previous: Yes (NO CHANGE) Physical Exam Vital signs obtained and entered by: MARISA Horta MA Blood Pressure: 141/74 (LEFT ARM) Cuff size: regular Heart Rate: 65 O2 Saturation: 96 Height: 5 ft 2.25 in Weight: 163 lb 3.2 oz Weight change since last visit: 4 lb loss Body Mass Index: 29.6 BMI Classification: Overweight Impression and Plan 1. Obstructive Sleep Apnea-Hypopnea Syndrome, moderate, with lowest oxygen saturation of 83%. Obviously this is the cause of the patients symptoms of unrefreshed sleep, and excessive daytime sleepiness. Patient is still interested in using an oral appliance. Her uses an oral appliance with good results and she does not think she would like to use a CPAP. A follow up will be made to see if appliance has reduced symptoms. She is to call to make follow up once she has her new oral device. If so, another polysomnography will be ordered with use of the oral appliance to check efficacy in reducing apnea. Until patient is able to use the oral appliance, positional therapy is advised to avoid supine sleep with pillow positioning or one of the commercial products because apnea is more severe supine. 2. Hypoxemia, mild, with a lauro oxygen saturation of 83% and 10.2 minutes spent under 90%. The baseline oxygen saturation was normal with an average oxygen saturation of 94%. 3. Overweight, unspecified. Currently patients BMI is 29.6. She has lost weight. Obesity increases the risk of apnea, CPAP pressure requirements and overall health risks especially cardiovascular and diabetes. Thus patient is advised to continue to try to lose weight. * Oral appliance. * Continue to try to lose weight. * Avoid alcohol consumption near bedtime. * Avoid supine sleep until using the oral appliance. * Return one month after oral appliance obtained. I will assess response to therapy at that time. Counseling Topics: Sleeping position, Weight loss health impact Prescriptions: Other (Oral appliance) Plan: obtain oral appliance and follow up Visit Type: In Office Time Spent with Patient (minutes): 23 Provider Statement: I spent 100% of the Face to Face Visit with the patient with greater than 50% spent counseling the patient and coordination of care.
[2024-03-01 10:31] VITALS: BP 141/74; O2SAT 96
== END 2024-03-01 09:43 | disposition home or self-care (01) ==
LOC: SC 09:42
PROVIDERS: ATTEND Nurse Practitioner Family
DX: G47.33 Obstructive sleep apnea (adult) (pediatric) (principal); R09.02 Hypoxemia; E66.3 Overweight; Z68.29 Body mass index [BMI] 29.0-29.9, adult
CPT/HCPCS: 99213; G0463; 99212

== ENCOUNTER 2024-03-16 08:56 | Outpatient (CLI) | payer MEDICARE, OTHER ==
[2024-03-16 09:27] LABS: CHOL/HDL RATIO 3.7 (<4.4); CHOLESTEROL 183 mg/dL; HDL CHOLESTEROL 50 mg/dL; LDL CHOLESTEROL,CALCULATED 94 mg/dL; LDL/HDL RATIO 1.9 (<4.4); TRIGLYCERIDES 193 mg/dL; VLDL CHOLESTEROL 39 mg/dL
[2024-03-16 09:38] LABS: THYROID STIMULATING HORMONE 1.38 uIU/mL (0.34-5.60)
== END 2024-03-16 08:57 | disposition home or self-care (01) ==
LOC: LAB 08:56
PROVIDERS: ATTEND Physician Assistant
DX: E78.2 Mixed hyperlipidemia (principal); G25.0 Essential tremor
CPT/HCPCS: 36415; 80061; 83721; 84443